=== PATIENT | female | born 1995 | race Caucasian/White ===

== ENCOUNTER 2023-02-02 14:54 | Outpatient (CLI) | payer OTHER, SELFPAY ==
[2023-02-02 16:13] LABS: Basophils Absolute Auto 0.04 K/mm3 (0.00-0.10); Basophils Percent Auto 0.2 % (0.0-1.0); Eosinophils Percent Auto 1.2 % (1.0-6.0); Hematocrit 32.9 % (35.0-49.0); Hemoglobin 11.1 g/dL (12.0-15.0); Immature Granulocyte Absolute 0.23 K/mm3 (0.00-0.00); Immature Granulocyte Percent A 1.4 % (0.0-0.0); Lymphocytes Absolute Auto 3.29 K/mm3 (1.10-4.50); Lymphocytes Percent Auto 20.1 % (18.0-42.0); Mean Corpuscular HGB Conc 33.7 g/dL (32.0-36.0); Mean Corpuscular Hemoglobin 31.7 pg (27.0-31.0); Mean Platelet Volume 10.9 fl (9.2-11.8); Monocytes Absolute Auto 1.06 K/mm3 (0.10-0.90); Monocytes Percent Auto 6.5 % (2.0-11.0); Neutrophils Absolute Auto 11.5 K/mm3 (1.7-7.2); Neutrophils Percent Auto 70.6 % (50.0-70.0); Platelet Count Result 250 K/mm3 (150-420); Red Cell Distribution Width 12.3 % (11.6-14.4); White Blood Count 16.4 K/mm3 (4.8-10.8)
[2023-02-02 16:45] LABS: Thyroid Stimulating Hormone 2.42 uIU/mL (0.36-3.74)
[2023-02-02 17:40] LABS: Glucose 1 Hour PP 50gm Dose 124 mg/dL (70-130)
[2023-02-04 13:46] LABS: RPR Screen Non-Reactive (Non-Reactive)
[2023-02-05 14:35] LABS: Vitamin D 25 Hydroxy 33 ng/mL (30-100)
== END 2023-02-02 14:55 | disposition home or self-care (01) ==
PROVIDERS: PCP Registered Nurse; Visit Provider Registered Nurse
DX: Z34.93 Encounter for supervision of normal pregnancy, unspecified, third trimester (principal)
CPT/HCPCS: 36415; 82306; 82947; 84443; 85025; 86592; 87086

== ENCOUNTER 2023-03-02 15:31 | Outpatient (CLI) | payer OTHER, SELFPAY ==
[2023-03-02 15:44] LABS: Hematocrit 33.7 % (35.0-49.0); Hemoglobin 11.1 g/dL (12.0-15.0); Mean Corpuscular HGB Conc 32.9 g/dL (32.0-36.0); Mean Corpuscular Hemoglobin 31.4 pg (27.0-31.0); Mean Corpuscular Volume 95.5 fL (78.0-102.0); Mean Platelet Volume 11.2 fl (9.2-11.8); Platelet Count Result 255 K/mm3 (150-420); Red Blood Count 3.53 M/mm3 (4.20-5.40); Red Cell Distribution Width 12.5 % (11.6-14.4); White Blood Count 15.3 K/mm3 (4.8-10.8)
[2023-03-02 16:18] LABS: HIV 1 P24 AG Negative (Negative); HIV 1/2 AB Negative (Negative)
[2023-03-04 15:14] LABS: RPR Screen Non-Reactive (Non-Reactive)
== END 2023-03-02 15:32 | disposition home or self-care (01) ==
PROVIDERS: PCP Registered Nurse; Visit Provider Obstetrics & Gynecology
DX: Z34.03 Encounter for supervision of normal first pregnancy, third trimester (principal)
CPT/HCPCS: 36415; 85027; 86592; 87806

== ENCOUNTER 2023-04-26 05:50 | Inpatient (IN) | payer OTHER, SELFPAY ==
[2023-04-26] VITALS (219 sets, daily range): BP systolic 93–145; BP diastolic 43–97; PULSE 61–199; RESP 18; TEMP 36.1–36.6; O2SAT 81–100; BMI 43.4
--- NOTE | 2023-04-26 06:19 | P.PNAN_ITS ---
Anes - Initial Pre Proc Eval Procedure: Labor epidual Date/Time: 04/26/23 06:19 Surgeon: Aristides Clemente MD Pre Op Diagnosis: Labor pain Pre Op Diagnosis: IOL Patient Data Age: 27 Gender: F Height: Weight: Last Vital Signs Pulse 87 04/26/23 06:16 BP 129/78 04/26/23 06:16 Allergies Allergy/AdvReac Type Severity Reaction Status Date / Time No Known Allergies Allergy Verified 04/20/23 15:44 Home Medications Medication Instructions Recorded Confirmed Type vitamins no.170-iron 1 tablet PO DAILY 02/02/23 04/04/23 History fumarate 27 mg-folic acid 1 mg tablet ferrous sulfate 325 mg (65 mg 325 mg PO DAILY 03/30/23 03/30/23 History iron) tablet Patient hx anesthesia problems: none Family hx anesthesia problems: none Results Review: All pre-operative results and documents have been reviewed as part of the pre- operative evaluation. [facility] Past Medical History Medical History Encounter for related examination in third trimester Fibroid Family History Family History Grandparent Diabetes mellitus Hypertension Grandparent Diabetes mellitus Mother Depression Hypertension Migraine Social History Social History Smoking status: Never smoker Alcohol intake: former Substance use: never Lack of Transportation: No Lack of Food: Never True Current Housing: I Have Housing Concerned About Future Housing: No Difficulty Paying Gas/Electric Bills: No Difficulty Paying for Meds: No Currently Unemployed: No Difficulty w/ Childcare or Family Care: No Living arrangements: with family Additional living arrangements comments: Spouse Occupation/Education: occupation 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 Informed Consent: The patient's anesthetic plan and its attendant risks and benefits were discussed with the patient/family/POA. Questions were solicited and answers provided to the satisfaction of the patient/family/POA.
--- NOTE | 2023-04-26 06:36 | LDADM ---
This patient, Lo Rodas, was admitted to Labor/Delivery/Recovery 103 on 04/26/23 at 05:50. Plans for labor, pain management and were discussed with patient. Patient/family oriented to hospital policies and general routines including ID bracelet, bed and alarms, visiting hours, pain management, procedures, bathroom and other care routines, personal items, smoking policy, room service/diet and guest tray routines, security routines, and visiting hours. Patient/Family are encouraged to report perceived risks to care and to ask questions if they do not understand what they are told or what they should do. See OBIX for further documentation.
[2023-04-26 06:42] LABS: Basophils Percent Auto 0.3 % (0.2-1.2); Eosinophils Absolute Auto 0.2 K/mm3 (0-0.3); Eosinophils Percent Auto 1.3 % (0-4.4); Hematocrit 34.6 % (37.0-47.0); Hemoglobin 11.8 g/dL (12.0-15.0); Immature Granulocyte Absolute 0.22 K/mm3 (0.00-0.031); Immature Granulocyte Percent A 1.4 % (0-0.5); Lymphocytes Absolute Auto 3.18 K/mm3 (0.9-3.2); Lymphocytes Percent Auto 19.9 % (18.3-44.2); Mean Corpuscular HGB Conc 34.1 g/dl (32-36); Mean Corpuscular Hemoglobin 31.6 pg (26-34); Mean Corpuscular Volume 92.5 fl (80-100); Mean Platelet Volume 11.4 fl (7.4-10.4); Monocytes Absolute Auto 1.1 K/mm3 (0.1-0.6); Monocytes Percent Auto 7.1 % (2.6-8.5); Neutrophils Absolute Auto 11.2 K/mm3 (1.3-6.7); Platelet Count Result 251 k/mm3 (150-375); Red Blood Count 3.74 M/mm3 (4.2-5.4); Red Cell Distribution Width 12.8 % (11.5-14.5)
[2023-04-26] MEDS: LACTATED RINGERS 1,000 ML 125 ML IV CONT ×2 (07:17→17:25)
[2023-04-26] MEDS: OXYTOCIN 30 UNITS/NS 500 ML 30 UNITS/500 ML BAG 6 UNITS IV CONT (07:17)
--- NOTE | 2023-04-26 11:56 | PM.IMHP ---
H&P: HPI History of Present Illness Date/Time: 04/26/23 11:56 Chief Complaint: Induction of labor. She is term, uncomplicated , discussed options of induction vs spontaneous labor and had opted for MIL. Labs reviewed. Review of Systems Review of Systems: All systems reviewed & are unremarkable except as noted in HPI and below Constitutional: Constitutional: Reports no additional constitutional complaints and Denies headache(s) Eyes: Eyes: Denies spots in vision ENT: Reports system reviewed and no additional complaints, except as documented and Denies headache(s) Cardiovascular: Cardiovascular: Denies chest pain and Denies dyspnea Respiratory: Respiratory: Denies dyspnea Gastrointestinal: Gastrointestinal: Reports no additional gastrointestinal complaints Genitourinary: Genitourinary: Reports amenorrhea Musculoskeletal: Musculoskeletal: Reports no additional musculoskeletal complaints Integumentary/Breasts: Skin/Breast: Denies breast mass and Denies rash Neurologic: Denies headache(s) Psychiatric: Psychiatric: Reports no additional psychiatric complaints [facility] Past Medical History Medical History (Updated 05/13/23 @ 10:08 by Aristides Clemente MD) Encounter for related examination in third trimester Fibroid Vaginal delivery Family History Family History Grandparent Diabetes mellitus Hypertension Grandparent Diabetes mellitus Mother Depression Hypertension Migraine Social History Social History Smoking status: Never smoker Alcohol intake: former Substance use: never Do You Feel Safe in your Home?: Yes Lack of Transportation: YES Lack of Food: Never True Current Housing: I Have Housing Concerned About Future Housing: No Difficulty Paying Gas/Electric Bills: No Difficulty Paying for Meds: No Currently Unemployed: No Education: Master's Degree or Higher Difficulty w/ Childcare or Family Care: No Living arrangements: with family Additional living arrangements comments: Spouse Occupation/Education: occupation 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 Gender identity (if verbalized by the patient): Female Sexual Orientation (if Verbalized by the Patient): Straight or Heterosexual Spiritual care concerns: No Meds Home Medications and Allergies Home Medications Medication Instructions Recorded Confirmed Type vitamins no.170-iron 1 tablet PO DAILY 02/02/23 04/04/23 History fumarate 27 mg-folic acid 1 mg tablet ferrous sulfate 325 mg (65 mg 325 mg PO DAILY 03/30/23 03/30/23 History iron) tablet Allergies Allergy/AdvReac Type Severity Reaction Status Date / Time No Known Allergies Allergy Verified 04/20/23 15:44 Vital Signs Vital Signs - 24 hr 04/26/23 06:16 04/26/23 07:45 04/26/23 07:47 Temperature 97.8 F Pulse Rate 87 63 61 Respiratory Rate 18 Blood Pressure 129/78 137/71 129/67 Oxygen Delivery 04/26/23 08:01 04/26/23 08:16 04/26/23 08:31 Temperature Pulse Rate 76 83 83 Respiratory Rate Blood Pressure 124/58 L 120/64 132/76 Oxygen Delivery 04/26/23 08:46 04/26/23 09:01 04/26/23 09:16 Temperature Pulse Rate 63 81 72 Respiratory Rate Blood Pressure 140/81 132/82 106/80 Oxygen Delivery 04/26/23 09:31 04/26/23 09:00 04/26/23 09:46 Temperature 97 F L Pulse Rate 94 80 Respiratory Rate Blood Pressure 121/77 125/72 Oxygen Delivery 04/26/23 10:01 04/26/23 10:16 04/26/23 10:31 Temperature Pulse Rate 74 84 66 Respiratory Rate Blood Pressure 126/69 133/64 127/95 H Oxygen Delivery 04/26/23 10:46 04/26/23 11:03 04/26/23 11:54 Temperature 97 F L Pulse Rate 75 64 Respiratory Rate Blood Pressure 133/78 135/65 Oxygen Delivery 04/26/23 06:35 Temperature Pulse Rate Respiratory R
[2023-04-26 14:37] LABS: Rapid Plasma Reagin Non-Reactive (NonReactive)
[2023-04-26] MEDS: ONDANSETRON INJ 4 MG/2 ML VIAL IV PUSH (17:25)
[2023-04-27] VITALS (26 sets, daily range): BP systolic 110–152; BP diastolic 56–80; PULSE 81–139; RESP 16–20; TEMP 36.4–37.2; O2SAT 84–99
[2023-04-27] MEDS: OXYTOCIN 30 UNITS/NS 500 ML 30 UNITS/500 ML BAG 999 UNITS IV CONT (01:00)
[2023-04-27] MEDS: OXYTOCIN 30 UNITS/NS 500 ML 30 UNITS/500 ML BAG 125 UNITS IV CONT (01:30)
--- NOTE | 2023-04-27 01:38 | P.PCNOB_ITS ---
OB - Vaginal Delivery Note Procedure Delivery date: 04/27/23 Induction method: Per Pitocin Protocol Delivery augmentation: Rupture of Membranes Delivery monitor: External FHT and Internal Uterine Route of delivery: Episiotomy description: None Laceration Description: Perineal - 2nd Degree Delivery repair: vicryl (3.0 vicryl) Specimen: No Quantitative Blood Loss (ml): 350 Anesthesia type: Epidural Disposition: Floor Complications: No immediate complications Narrative: She was admitted for [facility]. She had pitocin started. She had AROM 0844. She progressed to active labor. She dilated to complete, -1 station/OP. After changing positions to allow baby descend. She then started pushing and delivered a male . Nose and mouth suctioned at perineum. Infant was vigorously crying and placed on maternal abdomen. Delayed cord clamping for 45 seconds until cord apulsatile. Placenta delivered spontaneously. She sustained a second degree perineal laceration repaired with 3.0 vicryl. She tolerated procedure well. [place] Baby Date of : 04/27/23 Weeks of gestation at delivery: 40 gender: Male presentation: vertex position: Right Occiput Posterior Placenta delivery description: Spontaneous Cord Vessel Description: 3 Vessels, Clamped/Cut and Delayed Cord Clamping score one minute: 9 score five minutes: 9 AMG Delivery Billing Delivery Delivery: Delivery Charge
--- NOTE | 2023-04-27 03:37 | PC.NURSE ---
Patient transferred to post room #291 per wheelchair from labor and delivery. Support person present. Oriented to unit, room, information board, rooming in, admission packet and security measures. Patient verbalizes understanding.
[2023-04-27] MEDS: IBUPROFEN 600 MG TABLET PO (04:05)
--- NOTE | 2023-04-27 15:52 | PC.NURSE ---
[id number] Introductions were made, then consulted with patient to assess needs related to . Discussed with mother her?plans to feed?her infant, the?experience so far and encouraged understanding of the benefits of skin to skin (demonstrating unwrapping infant and placing upright on her chest), stimulating with massage touch, changing positions to encourage wakefulness, how to watch for early feeding cues, responsive feeding, feeding on demand (aiming for 8-12 times in 24 hours, about every 2-3 hours), milk production, building/maintaining a milk supply, duration of feeding, signs of adequate intake/output and how to record on the feeding sheet. Changed a wet and meconium diaper and placed infant [id number] demonstrating waking up baby techniques. Resources provided for inpatient and outpatient services with the feeding sheet, mom/baby guide and name written on the communication board. Mother voiced understanding of information and will call if there is a request for assistance. Reported to the Primary RN. [phone] Consulted with patient after a request of assistance. Mother works well with her with encouragement and education. Reviewed positioning and ear, shoulder, hip alignment, supporting the breast to facilitate a deep latch, asymmetrical latch (off-center), leading with the chin with a big, open, wide gape and body close to mother. Attempted to latch to the right breast using the football positioning and didn't not want to latch. Decided to attempt to the right breast using the cross cradle positioning. is able to effectively latch, with big, open, wide gape, good rocking jaw motion, then doesn't maintain. demonstrates some gaggy behaviors. We re-latched several times practicing the movements and latch for about 10 minutes, then made a decision to latch to the left breast. latched optimally to the left breast in cross cradle position. Education given to the mother of how to visualize the suckling (with good rocking jaw motion), swallows (dropping of the lower jaw) and how to listen for drinking at the breast (the ka sound). Infant was able to maintain latch without pain to mother protecting the nipple with optimal positioning, latching and demonstrating swallowing. Reviewed comfort measures of healing with a warm, wet washcloth to rinse breast, then leave open to air-dry, good handwashing when or touching the breast/nipples to prevent infection. Mother voiced understanding of skin to skin, stimulating with massage touch, responsive feedings, hand expressed colostrum, talking to infant to encourage if it has been 2 -2.5 hours since the start of the last , to call if does not latch, or if there is discomfort with . Resources used for education were facilitated with the visual educational handouts, tool, mom and baby guide. Inpatient/outpatient resources provided with feeding sheet, name written on the communication board, and the mom/baby guide. Parents voiced understanding of information, demonstrated learning and will call if there is a request for assistance. Reported to the Primary RN. [id number] Mother requested assistance with . Consulted with mother to assess needs. Mother has company in the room, then leave and more comes in to visit. Mother is willing to work with LC and with company. We practice [id number]-uica, waking techniques and infant is sleepy and reluctant to show feeding cues to breastfeed. Mother states infant was circumcised around noon and the primary RN stated infant may be sleepy after the procedure and oral medication. We discussed and practiced hand expression and finger fed a few drops of colostrum to . Maternal grandmother will hold infant while the parents eat lunch. [phone] Mother called for assistance to wake infant up to breastfeed. Circumcision care was disc
[2023-04-27] MEDS: WITCH HAZEL 40 PADS 1 PAD TOPICAL (22:53)
[2023-04-28 06:20] LABS: Hemoglobin 9.5 g/dL (12.0-15.0)
--- NOTE | 2023-04-28 07:43 | WPDANLDPN2 ---
Anes-Prog Note L&D Date/Time: 04/28/23 07:43 Comfortable throughout: labor and delivery Neuraxial method: epidural Epidural/Spinal procedure site: clean & non-tender Neuro status: Neuro function grossly intact. Cardiovascular status: normal Respiratory status: normal Airway patency: baseline Mental status: baseline Post-Op hydration status: normal Vital Signs: Last Vital Signs Temp 98.0 F 04/27/23 20:25 Pulse 105 H 04/27/23 20:25 Resp 20 04/27/23 20:25 BP 136/78 04/27/23 20:25 Pulse Ox 99 04/27/23 12:15 O2 Del Method Room Air 04/27/23 12:30 Pain score (VAS): 0/10 Post-procedural complaints: none Patient feedback: Patient satisfied with anesthetic care.
[2023-04-28 08:00] VITALS: BP 120/68; PULSE 80; RESP 16; TEMP 36.3; O2SAT 100
[2023-04-28] MEDS: IBUPROFEN 600 MG TABLET PO (09:11)
[2023-04-28] MEDS: MULTIVIT/MIN/PREN/FOL AC/IRON TABLET 1 TAB PO (09:11)
[2023-04-28] MEDS: POLYSACCHARIDE IRON COMPLEX 150 MG CAPSULE PO (09:11)
[2023-04-28] MEDS: DOCUSATE SODIUM 100 MG CAPSULE PO (09:11)
--- NOTE | 2023-04-28 11:42 | PC.NURSE ---
Patient viewed the discharge video Mother & Baby Care, The First Two Weeks . Patient was given the opportunity and encouraged to ask questions. Patient verbalized understanding of information shared and has been given the mother/baby guide for home reference.
--- NOTE | 2023-04-28 13:17 | PC.NURSE ---
[id number] Mother verbalizes she is able to independently latch with appropriate positioning, alignment and occasionally uses the nipple shield or supplements with a bottle. She denies any nipple discomfort and is responsively . is currently meeting outcomes for weight, output, jaundice, blood sugar and feeding frequencies of 8-12 times in 24 hours. Reminded mother to use good handwashing technique to prevent infection. Mother is feeding appropriately for growth of infant and understands stimulating infant to eat if needed. Mother states she is confident to continue effectively her at home, when to call for assistance, denies any additional assistance or education at this time. Reinforced understanding of milk production, transition of milk, signs of adequate intake, transition of stool, prevention/relief of engorgement, plugged ducts, mastitis, responsive watching for feeding cues, the different methods of stimulating to breastfeed on demand aiming for 1-3 hours after the start of the last feeding, community resources, and when to call a provider using the resource of the mom and baby guide. Mother voiced understanding of the education shared.
[2023-04-29 13:58] VITALS: BP 134/66; PULSE 72; RESP 18; TEMP 37; O2SAT 100
--- NOTE | 2023-05-16 19:59 | PM.OBDSVD ---
DS: Admitting Diagnosis Discharge Date 04/28/23 Admitting Diagnosis Medical induction of labor DS: Discharge Diagnosis Discharge Diagnosis (1) Vaginal delivery: Code(s): O80 - Encounter for full-term uncomplicated delivery Status: Acute OB - DS: Summary Hospital Course Hospital Course: She was admitted for medical induction of labor. She had an uncomplicated vaginal deivery. She did well . Baby did well. She was discharged to home on 04/28/23. OB Procedures : Ultrasound OB Procedures Intrapartum: Spontaneous Vag Delivery OB Procedures: : None Peripartum Data Infant Delivery Method: Natural Vaginal Laceration Description: Perineal - 2nd Degree Episiotomy description: None complications: none Status at Discharge Functional status at discharge: independent ambulation Time Spent with Patient Time attestation: Total time spent providing and/or coordinating discharge services: Exam Const: General: cooperative Orientation/consciousness: oriented to person, oriented to place and oriented to time HENMT: Face/Nose/Sinus: Normal external nose present Eyes: General: appearance normal, both eyes and all related structures Resp: Effort & Inspection: normal respiratory effort GI: Inspection: normal to inspection Skin: General skin exam: normal color Neuro: General: oriented to person, oriented to place and oriented to time Extrem: General: normal to inspection and no calf tenderness Psych: Appearance: grossly normal Mental Status: mental status grossly normal Discharge Plan Discharge Attending physician on discharge: Aristides Clemente Consulting providers: Ted Velazquez; Demar Vargas Discharging Clinician: Aristides Clemente Anticipated Discharge Date/Time: 04/28/23 10:58 Patient Disposition: Home, Self-Care Activity: may shower and pelvic rest Diet: regular Discharge Instructions: Education: Mom and Baby Guide Given to: Mother Follow-Up: Call your delivering provider's office for an appointment to be seen in the next 4-6 weeks. Mom and baby should come to the [facility] for the follow-up appointment. Appointment Date/Time: April 29, 2023 at 1:30 pm What to expect at your follow-up visit: Physical Assessment Call [phone] if you are unable to keep your appointment time. BREAST CARE: * Wear a snug supportive bra. * For engorgement discomfort: Breast Feeding: * Apply warm moist washcloths * Express milk as needed to relieve engorgement * Wear loose clothing Bottle Feeding: * May apply ice packs * For sore nipples: * Identify correct latch-on * Apply warm moist washcloths before and after nursing * Air dry nipples after nursing * May apply Lansinoh cream to nipples EPISIOTOMY/PERINEAL CARE: * Until bleeding stops, use your andriy bottle after urinating * Change your pad frequently throughout the day * You may take sitz baths several times a day (fill your bathtub with warm water and soak for 20 minutes.) Do NOT bathe in the water * No tub baths until seen by your physician - You may shower ACTIVITY: * Rest as much as possible. * Do not exercise or lift anything heavier than your baby (such as laundry or other children.) * Avoid stairs or driving as much as possible. * Do not put anything into the vagina. No douching, tampons, or sexual activity until seen by physician. NOTIFY PHYSICIAN IF YOU HAVE ANY QUESTIONS OR IF ANY OF THE FOLLOWING SYMPTOMS OCCUR: * If your episiotomy/perineum becomes red, swollen, or more painful than what you have experienced in the hospital. * If your vaginal bleeding becomes foul smelling. * If your vaginal bleeding becomes more heavy than a period or if your bleeding changes from pink to bright red. However, you may pass an occasional walnut-sized clot once or twice for the first we
== END 2023-04-28 13:41 | disposition home or self-care (01) | DRG 807 ==
LOC: ANHLDR 05:54 → ANHOB2 04-27 03:40
PROVIDERS: Admitting Provider Obstetrics & Gynecology; Visit Provider Obstetrics & Gynecology
DX: O70.1 Second degree perineal laceration during delivery (principal); Z37.0 Single live birth; Z3A.40 40 weeks gestation of pregnancy
CPT/HCPCS: 36415; 85014; 85018; 85025; 86592; 86850; 86900; 86901; A9270; J2405; J2590; J2795; J7120

== ENCOUNTER 2023-10-17 15:09 | Outpatient (CLI) | payer OTHER, SELFPAY ==
--- NOTE | ~2023-10-17 | US_ITS ---
Pelvic ultrasound. Clinical History: Respiratory distress or , establish dates and viability Technique: Realtime transabdominal and transvaginal scanning of the pelvis was performed. Color flow Doppler and Doppler spectral analysis were performed. Findings: The uterus is anteverted, and contains an intrauterine gestational sac. Average sac diamete r of 2.2 cm corresponds to an estimated gestational age is 7 weeks 1 day. [place]-rump length of 5 mm c orresponds to an estimated gestational age of 6 weeks 1 day. No definite cardiac activity seen. The right ovary measures 2.2 x 2.2 x 2.0 cm. No significant right ovarian or adnexal mass is seen. The left ovary is not visualized. No significant left ovarian or adnexal mass is seen. There is no evidence of free fluid in the cul de sac. Impression: Intrauterine gestation, with somewhat discrepant ages on comparing average sac diameter with crown-ru mp length. Based on crown-rump length, there is an estimated gestational age of 6 weeks 1 day, but no cardiac activity evident. Diagnostic considerations include early normal versus didi se/missed . Correlate clinically. Continued follow-up with serial beta hCG advised. Consider short-term follow-up ultrasound in 5-7 days to assess for development of cardiac activity. Reviewed, dictated and finalized at location . Impression: Intrauterine gestation, with somewhat discrepant ages on comparing average sac diameter with crown-rump length. Based on crown-rump length, there is an estima primo gestational age of 6 weeks 1 day, but no cardiac activity evident. Diagnost ic considerations include early normal versus demise/missed abo rtion. Correlate clinically. Continued follow-up with serial beta hCG advised. Consider short-term follow-up ultrasound in 5-7 days to assess for development of cardiac activity.
== END 2023-10-17 15:10 ==
PROVIDERS: PCP Nurse Practitioner Family; Visit Provider Nurse Practitioner Family
DX: N91.2 Amenorrhea, unspecified (principal)
CPT/HCPCS: 76801; 76817

== ENCOUNTER 2023-10-18 15:47 | Outpatient (CLI) | payer OTHER, SELFPAY | END 2023-10-18 15:48 | disposition home or self-care (01) | LOC: CHSLAB 15:51 | PROVIDERS: PCP Nurse Practitioner Family; Visit Provider Obstetrics & Gynecology | DX: O36.80X0 Pregnancy with inconclusive fetal viability, not applicable or unspecified (principal) | CPT/HCPCS: 36415; 84702 ==

== ENCOUNTER 2023-10-20 12:50 | Outpatient (CLI) | payer OTHER, SELFPAY | END 2023-10-20 12:51 | disposition home or self-care (01) | LOC: CHSLAB 12:52 | PROVIDERS: PCP Nurse Practitioner Family; Visit Provider Obstetrics & Gynecology | DX: O36.80X0 Pregnancy with inconclusive fetal viability, not applicable or unspecified (principal) | CPT/HCPCS: 36415; 84702 ==

== ENCOUNTER 2023-10-24 11:12 | Outpatient (CLI) | payer OTHER, SELFPAY ==
--- NOTE | ~2023-10-24 | US_ITS ---
EXAMINATION: US OB <=14 wk fetus w TV DATE: 10/24/2023 11:44 INDICATION: with inconclusive viability. TECHNIQUE: Real-time transabdominal and transvaginal pelvic ultrasound was performed. COMPARISON: Ultrasound 10/17/2023 FINDINGS: TRANSABDOMINAL ULTRASOUND: The uterus measures 11.1 x 6.4 x 5.8 cm. TRANSVAGINAL ULTRASOUND: There is an intrauterine gestational sac. A yolk sac is not identified. The crown rump length measures 5 mm, which correlates with an estimated gestational age of 6 weeks and 1 day(s) (+/-) 4 day(s). heart motion is not identified by M-mode Doppler. There is a smal l subchorionic hematoma. The right ovary measures 2.3 x 2.2 x 2.8 cm. The left ovary is not visualize d. There is no free fluid in the pelvis. IMPRESSION: 1. pole measuring 5 mm without change in size from 10/17/2023 suspicious for demise. 2. Small subchorionic hematoma. Reviewed, dictated and finalized at location E.
== END 2023-10-24 11:13 ==
PROVIDERS: PCP Nurse Practitioner Family; Visit Provider Obstetrics & Gynecology
DX: O36.80X0 Pregnancy with inconclusive fetal viability, not applicable or unspecified (principal)
CPT/HCPCS: 76801; 76817

== ENCOUNTER 2023-10-26 11:56 | Outpatient (CLI) | payer OTHER, SELFPAY | END 2023-10-26 11:57 | disposition home or self-care (01) | LOC: CHSLAB 11:58 | PROVIDERS: PCP Nurse Practitioner Family; Visit Provider Nurse Practitioner Family | DX: O20.9 Hemorrhage in early pregnancy, unspecified (principal) | CPT/HCPCS: 36415; 84702 ==

== ENCOUNTER 2023-10-27 12:43 | Emergency (ER) | payer OTHER, SELFPAY ==
[2023-10-27] VITALS (10 sets, daily range): BP systolic 109–114; BP diastolic 61–67; PULSE 81–90; RESP 12–19; TEMP 36.7; O2SAT 97–100
--- NOTE | ~2023-10-27 | US_ITS ---
EXAMINATION: US OB <= 14 weeks fetus DATE: 10/27/2023 15:25 INDICATION: Miscarriage. Assess for retained products of conception. TECHNIQUE: Real-time pelvic ultrasound utilizing transabdominal probe was performed. The jose g radiologist was not present for the study. COMPARISON: None. FINDINGS: The uterus measures 13.2 x 4.9 x 7.3 cm. The endometrial complex measures up to 5 mm in thickness wi th no intrauterine gestational sac. Endocervical canal potentially endometrial canal within the lower uterine segment is dilated to 3.5 cm containing hypoechoic material without internal vascular flow o n color Doppler which could represent either clot or passing products of conception. The right ovary measures 2.7 x 2.3 x 2.2 cm. The left ovary measures 2.4 x 1.5 x 1.9 cm. Vascular kayla w identified at both ovaries on color Doppler. There is no free fluid in the pelvis. IMPRESSION: 1. 5 mm thick endometrial complex with no intrauterine gestational sac or retained products of concep tion at the uterine body or fundus. 2. Avascular hypoechoic material within the dilated endocervical and potentially also the endometrial canal of the lower most uterine segment which could represent clot or passing products of conception . Reviewed, dictated and finalized at location A. IMPRESSION: 1. 5 mm thick endometrial complex with no intrauterine gestational sac or retai daniel products of conception at the uterine body or fundus. 2. Avascular hypoechoic material within the dilated endocervical and potentiall y also the endometrial canal of the lower most uterine segment which could repr esent clot or passing products of conception.
--- NOTE | 2023-10-27 13:45 | ED.FEMALEGU ---
HPI - Female Genitourinary General Chief complaint: Vaginal Bleeding Stated complaint: pt states she is having a miscarriage 12 weeks pre Time Seen by Provider: 10/27/23 13:27 Source: patient and family Limitations: no limitations History of Present Illness HPI Narrative: 28 yo presents actively miscarrying. She had a normal spontaneous vaginal delivery with her first child (full term) on April 27, 2023. Menses returned and LMP 08/03/23 so approximately 11 to 12 weeks gestational age when she started having vaginal bleeding 3 days ago. She had some scant discharge on 10/20 and cramping. This continued and on 10/23 she saw her OBGyn (Dr Clemente's) nurse practitioner Marie. [facility] downtrending and patient was informed about miscarriage. Tuesday and Tuesday she continued to have some cramping and bleeding but it intensified today, saturating 2 pads/hour. States she had anemia of with her first . Pain comes and goes, has been using heating pads, tylenol and ibuprofen. Believes she passed products of conception at approximately 7:45. Has passed multiple clots and stringy tissue. Saturated an adult diaper in triage and then filled another in room by report. Related Data Home Medications Medication Instructions Recorded Confirmed vitamins no.170-iron 1 tablet PO DAILY 02/02/23 09/29/23 fumarate 27 mg-folic acid 1 mg tablet Allergies Allergy/AdvReac Type Severity Reaction Status Date / Time No Known Allergies Allergy Verified 10/27/23 12:44 REPLACED BY [facility] Past Medical History Medical History Fibroid Vaginal delivery April 27, 2023 Family History Family History Grandparent Diabetes mellitus Hypertension Grandparent Diabetes mellitus Mother Depression Hypertension Migraine Social History Social History Smoking status: Never smoker Alcohol intake: former Substance use: never Do You Feel Safe in your Home?: Yes Lack of Transportation: YES Lack of Food: Never True Current Housing: I Have Housing Concerned About Future Housing: No Difficulty Paying Gas/Electric Bills: No Difficulty Paying for Meds: No Currently Unemployed: No Education: Master's Degree or Higher Difficulty w/ Childcare or Family Care: No Living arrangements: with family Additional living arrangements comments: Spouse Occupation/Education: occupation 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 HEAD: Normocephalic, atraumatic. EYES: Non injected, non icteric. No marked conjunctival pallor ENT: Nares clear, no rhinorrhea or epistaxis. NECK: Supple. CHEST: Speaking in full sentences. No respiratory distress. HEART: Regular rate and rhythm. . ABDOMEN: Soft, nondistended. : Some blood at external genitalia. No appreciable lacerations. Some thin blood pooled at posterior fornix, cleared away with multiple Q tip applicators and 1 gauze pad. Thicker clot burden at anterior fornix. Broken up and multiple small clots removed. EXTREMITIES: Normal range of motion. No edema. No pettechiae. SKIN: Warm, dry, no rash. NEURO: No focal deficits. Alert and oriented x3. PSYCH: Normal mood and affect. Course Vital Signs Vital signs: Vital Signs Pulse Rate 81 10/27/23 13:30 Respiratory Rate 15 10/27/23 13:30 Pulse Oximetry 100 10/27/23 13:30 Temperature 98.0 F 10/27/23 13:31 Pulse Rate 90 10/27/23 15:07 Respiratory Rate 14 10/27/23 15:07 Blood Pressure 111/66 10/27/23 14:32 Pulse Oximetry 100 10/27/23 15:07 Oxygen Delivery Room A
[2023-10-27 13:57] LABS: Basophils Absolute Auto 0.1 K/mm3 (0.0-0.1); Basophils Percent Auto 0.4 % (0.2-1.2); Eosinophils Absolute Auto 0.2 K/mm3 (0-0.3); Eosinophils Percent Auto 1.2 % (0-4.4); Hematocrit 35.6 % (37.0-47.0); Hemoglobin 11.9 g/dL (12.0-15.0); Immature Granulocyte Absolute 0.05 K/mm3 (0.00-0.031); Immature Granulocyte Percent A 0.4 % (0-0.5); Lymphocytes Absolute Auto 3.01 K/mm3 (0.9-3.2); Mean Corpuscular HGB Conc 33.4 g/dl (32-36); Mean Corpuscular Hemoglobin 30.9 pg (26-34); Mean Corpuscular Volume 92.5 fl (80-100); Monocytes Absolute Auto 0.9 K/mm3 (0.1-0.6); Monocytes Percent Auto 7.6 % (2.6-8.5); Neutrophils Absolute Auto 7.9 K/mm3 (1.3-6.7); Neutrophils Percent Auto 65.4 % (45.5-73.1); Platelet Count Result 288 k/mm3 (150-375); Red Blood Count 3.85 M/mm3 (4.2-5.4); Red Cell Distribution Width 12.2 % (11.5-14.5); White Blood Count 12.1 K/mm3 (4.5-10.0)
[2023-10-27 14:09] LABS: Alanine Aminotransferase 11 U/L (6-35); Alkaline Phosphatase 70 U/L (38-126); Anion Gap 2 mmol/L (4-12); Aspartate Amino Transferase 18 U/L (14-36); Bilirubin,Total 0.4 mg/dL (0.2-1.3); Blood Urea Nitrogen 12 mg/dL (7-17); Calcium 9.4 mg/dL (8.4-10.2); Carbon Dioxide 28 mmol/L (22-30); Chloride 107 mmol/L (98-107); Estimated CRCL calculation 126 ml/min; Estimated Glomerular Filt Rate > 60; Glucose 104 mg/dL (65-110); Potassium 3.9 mmol/L (3.4-5.0); Sodium 137 mmol/L (137-145)
[2023-10-27 14:11] LABS: Prothrombin Time 14.1 Seconds (11.1-14.7)
[2023-10-27 14:13] LABS: Partial Thromboplastin Time 29.1 Seconds (22.3-36.8)
--- NOTE | 2023-10-27 15:14 | PC.NURSE ---
Has saturated 1 depend with blood since arrival. ERP aware.
== END 2023-10-27 16:35 | disposition home or self-care (01) ==
PROVIDERS: Physician Assistant; Emergency Provider Student in an Organized Health Care Education/Training Program; PCP Nurse Practitioner Family
DX: O03.9 Complete or unspecified spontaneous abortion without complication (principal); D64.9 Anemia, unspecified; D72.829 Elevated white blood cell count, unspecified
CPT/HCPCS: 36415; 76801; 80053; 84702; 85025; 85461; 85610; 85730; 86850; 86900; 86901; 99284

== ENCOUNTER 2023-11-02 09:28 | Outpatient (CLI) | payer OTHER, SELFPAY | END 2023-11-02 09:29 | disposition home or self-care (01) | LOC: CHSLAB 09:29 | PROVIDERS: PCP Nurse Practitioner Family; Visit Provider Nurse Practitioner Family | DX: O03.9 Complete or unspecified spontaneous abortion without complication (principal) | CPT/HCPCS: 36415; 84702 ==

== ENCOUNTER 2023-11-16 14:04 | Outpatient (CLI) | payer OTHER, SELFPAY | END 2023-11-16 14:05 | disposition home or self-care (01) | LOC: CHSLAB 14:06 | PROVIDERS: PCP Nurse Practitioner Family; Visit Provider Nurse Practitioner Family | DX: O03.9 Complete or unspecified spontaneous abortion without complication (principal) | CPT/HCPCS: 36415; 84702 ==

== ENCOUNTER 2023-11-30 17:01 | Outpatient (CLI) | payer OTHER, SELFPAY ==
[2023-11-30 17:51] LABS: Beta HCG Quantitative < 1.00 mIU/mL (0-6)
== END 2023-11-30 17:02 | disposition home or self-care (01) ==
LOC: CHSLAB 17:03
PROVIDERS: PCP Nurse Practitioner Family; Visit Provider Nurse Practitioner Family
DX: O02.1 Missed abortion (principal)
CPT/HCPCS: 36415; 84702

== ENCOUNTER 2024-07-30 16:48 | Outpatient (CLI) | payer OTHER, SELFPAY ==
--- OUTSIDE RECORDS SUMMARY | 2024-07-30 18:47 | XMS_ITS | Referral Summary ---
Author Organization [facility] Address [address] [place] [phone] Care Team Providers Care Tipple Worker Name Role Phone Jacki Doyle NP Primary Care Provider [phone] Encounters Date Type Department Care Team Description 07/17/2024 3:45 PM CDT Office Visit [facility] Medical [facility] Convenient Care at [address] [address] Belinda Rosales PA Nasopharyngitis (Primary Dx); Bilateral impacted cerumen 05/03/2024 5:30 PM ADULT LIVE IN CAREGIVER Office Visit [facility] Convenient Care at [address] [address] Belinda Rosales PA Cellulitis of left lower extremity (Primary Dx) from Last 3 Months Allergies No known active allergies Medications Zoloft 50 mg tablet 4 Active mupirocin (BACTROBAN) 2 % ointment Apply topically 3 (three) times a day 22 g 4 Active Additional Information Patient not taking.Reported on 07/17/2024 Active Problems Problem Noted Date Diagnosed Date Preventative health care 09/15/2023 Assessment & Plan (09/15/2023 8:09 AM CDT): -Recommended: Healthy diet. Avoiding junk food/fast food. -30 minutes of exercise most days of the week. Increase to 45 minutes for weight loss. Immunizations: Up to date increase physical activity, continue present plan, call if any problems Follow-up in 1 year. Immunizations Immunization Administration Dates Next Due Influenza, Unspecified 05/09/2023(Deferr ed: Patient Refused),05/09/2022(Deferred: Patient Refused) Tdap 03/07/2023 Social History Tobacco Use Types Packs/Day Years Used Date Smoking Tobacco: Never Smokeless Tobacco: Never PHQ-2 Answer Date Recorded PHQ-2 Total Score (If total score is 3 or more points, staff should administer the PHQ-9) 0 09/08/2023 Comments Unknown Sex and Gender Information Value Date Recorded Sex Assigned at Not on file Legal Sex Female 4:11 PM CDT Gender Identity Not on file Sexual Orientation Not on file Last Filed Vital Signs Vital Sign Reading Time Taken Comments Blood Pressure 108/72 07/17/2024 3:46 PM CDT Pulse 80 07/17/2024 3:46 PM CDT Temperature 36.3 C (97.4 F) 07/17/2024 3:46 PM CDT Respiratory Rate 20 07/17/2024 3:46 PM CDT Oxygen Saturation 97% 07/17/2024 3:46 PM CDT Inhaled Oxygen Concentration - - Weight 102.1 kg (225 lb) 07/17/2024 3:46 PM CDT Height 162.6 cm (5' 4 ) 07/17/2024 3:46 PM CDT Body Mass Index 38.62 07/17/2024 3:46 PM CDT Plan of Treatment Not on file Procedures Procedure Name Priority Date/Time Associated Diagnosis Comments POCT RAPID STREP Routine 07/17/2024 4:10 PM CDT Nasopharyngitis POC INFLUENZA A/B, COVID-19 ANTIGEN Routine 07/17/2024 4:10 PM CDT Nasopharyngitis [place] REMOVAL IMPACTED CERUMEN INSTRUMENTATION UNILAT Routine 07/17/2024 3:45 PM CDT Bilateral impacted cerumen from Last 3 Months Results * POC Influenza A/B, COVID-19 antigen (07/17/2024 4:10 PM CDT) Influenza A Ag, POC Negative Negative [facility] Influenza B Ag, POC Negative Negative [facility] COVID-19 Ag POC Presumptive Negative Presumptive Negative, Invalid [facility] Nasopharyngeal 07/17/2024 4: 10 PM CDT Belinda SPARROW POINT OF CARE TEST ORDER LIZY Final Result Performing Organization Address City/State/[facility] de Phone Number [facility] EDW [facility] [place] [address], [facility] * POCT rapid strep A (07/17/2024 4:10 PM CDT) Pathologist [facility] Rapid Strep A, POC Negative Negative Swab 07/17/2024 4:10 PM CDT Belinda SPARROW POINT OF CARE TEST ORDER LIZY Final Result * [place] REMOVAL IMPACTED CERUMEN INSTRUMENTATION UNILAT (07/17/2024 3:45 PM CDT) Narrative Belinda Rosales PA - 07/17/2024 3:45 PM CDT Belinda Rosales PA 07/17/2024 4:24 PM Ear Cerumen Removal Performed by: Belinda Rosales PA Authorized by: Belinda Rosales PA Consent Given by: Patient Verbal consent obtained: Yes Location: Bilateral L ear cerumen impacted?: Yes L ear method of removal: Instrumentation, magnification and irrigation L ear instrumentation: Curette L ear magnification: Otoscope R ear cerumen impacted?: Yes R ear method of removal: Instrumentation, magnification and irrigation R ear instrumentation: Curette R ear magnification: Otoscope Inspection: TM intact Hearing quality: Improved Patient tolerance: Patient tolerated the procedure well with no immediate complications Belinda SPARROW IN CLINIC/BEDSIDE ORDERA BLES Final Result from Last 3 Months Insurance AETNA [facility] CHOICE PLUS CHOICE PLUS Care Teams Tipple Worker Relationship Specialty Start Date End Date Jacki Doyle NP PCP - General Family Medicine 09/08/23
--- OUTSIDE RECORDS SUMMARY | 2024-07-30 18:47 | XMS_ITS | Clinical Summary ---
Author Organization [facility] Address [address] [place] [phone] Care Team Providers Care Casting Wheel Operator Helper Name Role Phone Jacki Doyle NP Primary Care Provider [phone] Allergies No known active allergies Medications Zoloft [...] if any problems Follow-up in 1 year. Encounters Date Type Department Care Team Description 07/17/2024 3:45 PM CDT Office Visit [facility] Convenient Care at [address] [address] Belinda Rosales PA Nasopharyngitis (Primary Dx); Bilateral impacted cerumen 05/03/2024 5:30 PM GATEHOUSE ATTENDANT Office Visit [facility] Medical [facility] Convenient Care at [address] [address] Belinda Rosales PA Cellulitis of left lower extremity (Primary Dx) from Last 3 Months Immunizations Immunization Administration Dates Next Due Influenza, Unspecified 05/09/2023(Deferr ed: Patient Refused),05/09/2022(Deferred: Patient Refused) Tdap 03/07/2023 Medical History Medical History Date Comments 04/2023 Family History Medical History Relation Name Comments Diabetes Maternal Grandfather Ovarian cancer Maternal Grandmother Hypertension Mother Diabetes Paternal Grandfather Relation Name Status Comments Father Alive Maternal Grandfather Maternal Grandmother Mother Alive Paternal Grandfather Social History Tobacco Use Types Packs/Day Years [...] on file Sexual Orientation Not on file Obstetrics History Last Filed Vital Signs Vital Sign Reading [...] 07/17/2024 3:46 PM CDT Plan of Treatment Health Maintenance Due Date Last Done Comments Cervical Cancer Screening 1996 Hepatitis C Screening 1996 Varicella Vaccines (1 of 2 - 13+ 2-dose series) 2009 Hepatitis B Screening 2014 Influenza Vaccine (#1) 2024 Depression Screening 09/07/2024 09/08/2023 Regular Well Visit/Exam 18-64 09/07/2024 09/08/2023 DTaP/Tdap/Td Vaccine (2 - Td or Tdap) 03/07/2033 03/07/2023 HPV Vaccines Aged Out No longer eligi ble based on patient's age to complete this topic Pneumococcal vaccine <65 Aged Out No longer eligible based on patient's age to complete this topic Procedures Procedure Name Priority Date/Time Associated Diagnosis Comments POCT RAPID STREP Routine 07/17/2024 4:10 PM CDT Nasopharyngitis POC INFLUENZA A/B, COVID-19 ANTIGEN Routine 07/17/2024 4:10 PM CDT Nasopharyngitis [place] REMOVAL IMPACTED CERUMEN INSTRUMENTATION UNILAT Routine 07/17/2024 3:45 PM CDT Bilateral impacted cerumen from Last 3 Months Results * POC Influenza A/B, COVID-19 antigen (07/17/2024 4:10 PM CDT) Influenza A Ag, POC Negative Negative [facility] Influenza B Ag, POC Negative Negative [facility] COVID-19 Ag POC Presumptive Negative Presumptive Negative, Invalid [facility] Nasopharyngeal 07/17/2024 4: 10 PM CDT Belinda SPARROW POINT OF CARE TEST ORDER LIZY Final Result [facility] ED[facility] [address] [place] [address] * POCT rapid strep A (07/17/2024 4:10 PM CDT) Rapid Strep A, POC Negative Negative Swab 07/17/2024 4:10 PM CDT Belinda SPARROW POINT OF CARE TEST ORDER LIZY Final Result * [place] REMOVAL IMPACTED CERUMEN INSTRUMENTATION UNILAT (07/17/2024 3:45 [...] Result from Last 3 Months Insurance AETNA [facility] CHOICE PLUS [facility] H[facility]/PPO Address: [address] [address] [place] [address] [facility] CHOICE PLUS [facility] H[facility]/PPO Address: [place] [address] Care Teams Casting Wheel Operator Helper Relationship Specialty Start Date End Date Jacki Doyle NP PCP - General Family Medicine 09/08/23
--- OUTSIDE RECORDS SUMMARY | 2024-07-30 18:47 | XMS_ITS | Clinical Summary ---
Author Organization [facility] Address [address] [place] [phone] Phone Care Team Providers Care Bed And Breakfast Innkeeper Name Role Phone Unavailable Primary Care Provider Unavailabl e Encounters Date Type Department Care Team Description 05/31/2024 External Device Data STL ABSTRACTION Provider, Abstract from Last 3 Months Social History Tobacco Use Types Packs/Day Years Used Date Smoking Tobacco: Never Assessed Comments Unknown Sex and Gender Information Value Date Recorded Sex Assigned at Not on file Legal Sex Female 8:11 AM CDT Gender Identity Not on file Sexual Orientation Not on file Plan of Treatment Health Maintenance Due Date Last Done Comments DTAP/TDAP/TD VACCINES (1 - Tdap) 2015 HEPATITIS B VACCINES (1 of 3 - 19+ 3-dose series) 2015 PAP SMEAR 2017 INFLUENZA VACCINE (#1) 2023 HPV VACCINES Aged Out No longer eligi ble based on patient's age to complete this topic Insurance [employer] [id number]
--- OUTSIDE RECORDS SUMMARY | 2024-07-30 18:47 | XMS_ITS | Clinical Summary ---
Author Organization [facility] Address [address] [place] [address] Phone Care Team Providers Care Aerospace Project Engineer Name Role Phone Vicente Gupta MD Primary Care Provider + Social History Tobacco Use Types Packs/Day Years Used Date Smoking Tobacco: Never Assessed Comments Unknown Sex and Gender Information Value Date Recorded Sex Assigned at Not on file Legal Sex Female 12:59 PM CDT Gender Identity Not on file Sexual Orientation Not on file Plan of Treatment Health Maintenance Due Date Last Done Comments Hepatitis C Virus (HCV) Screening 1996 TdaP Immunization 1996 Hepatitis B Immunization (1 of 3 - 19+ 3-dose series) 2015 Pap Smear 2017 Influenza Immunization (#1) 2024 SARS-COV-2 Immunization (2023- season) 2024 Respiratory Syncytial Virus (RSV) Immunization (Adult) (1 - 1-dose 75+ series) 2071 Meningococcal Immunization (ACWY) Aged Out No longer eligible based on patient's age to complete this topic Pneumococcal Immunization Combined Aged Out No longer eligible based on patient's age to complete this topic Rotavirus Immunization Aged Out No lo nger eligible based on patient's age to complete this topic Insurance MEDICAID AETNA [facility] Care Teams Aerospace Project Engineer Relationship Specialty Start Date End Date Vicente Gupta MD [address] [address] PCP - General Family Medicine 12/11/22
[2024-07-31 03:28] LABS: Progesterone 8.3 ng/mL
== END 2024-07-30 16:49 | disposition home or self-care (01) ==
LOC: CHSLAB 16:49
PROVIDERS: PCP Nurse Practitioner Family; Visit Provider Obstetrics & Gynecology
DX: O09.299 Supervision of pregnancy with other poor reproductive or obstetric history, unspecified trimester (principal)
CPT/HCPCS: 36415; 84144; 84702

== ENCOUNTER 2024-08-01 15:46 | Outpatient (CLI) | payer OTHER, SELFPAY ==
--- OUTSIDE RECORDS SUMMARY | 2024-08-01 16:56 | XMS_ITS | Clinical Summary ---
Author Organization [facility] Address [address] [place] [phone] Care Team Providers Care Auger Mill Operator Name Role Phone Jacki Doyle NP Primary Care Provider [phone] Allergies No known active allergies Medications Zoloft [...] Description 07/17/2024 3:45 PM CDT Office Visit [facility] Convenient Care at [address] [phone] Belinda Rosales PA Nasopharyngitis (Primary Dx); Bilateral impacted cerumen 05/03/2024 5:30 PM SINGER BACK TENDER Office Visit [facility] Medical [facility] Convenient Care at [address] [phone] Belinda Rosales PA Cellulitis of [...] ANTIGEN Routine 07/17/2024 4:10 PM CDT Nasopharyngitis [place] REMOVAL IMPACTED CERUMEN INSTRUMENTATION UNILAT Routine 07/17/2024 3:45 PM CDT Bilateral impacted cerumen from Last 3 Months Results * POC Influenza A/B, COVID-19 antigen (07/17/2024 4:10 PM CDT) Influenza A Ag, POC Negative Negative [facility] Influenza B Ag, POC Negative Negative [facility] COVID-19 Ag POC Presumptive Negative Presumptive Negative, Invalid [facility] Nasopharyngeal 07/17/2024 4: 10 PM CDT Belinda SPARROW POINT OF CARE TEST ORDER LIZY Final Result [facility] ED[facility] [address] [place] [address] * POCT rapid strep A (07/17/2024 4:10 PM CDT) Rapid Strep A, POC Negative Negative Swab 07/17/2024 4:10 PM CDT Belinda SPARROW POINT OF CARE TEST ORDER LIZY Final Result * [place] REMOVAL IMPACTED CERUMEN INSTRUMENTATION UNILAT (07/17/2024 3:45 [...] Result from Last 3 Months Insurance AETNA [facility] CHOICE PLUS [facility] CHOICE PLUS Care Teams Auger Mill Operator Relationship Specialty Start Date End Date Jacki Doyle NP PCP - General Family Medicine 09/08/23
--- OUTSIDE RECORDS SUMMARY | 2024-08-01 16:56 | XMS_ITS | Clinical Summary ---
Author Organization [facility] Address [address] [place] [address] Phone Care Team Providers Care Computer Analyst Supervisor Name Role Phone Vicente Gupta MD Primary [...] to complete this topic Insurance MEDICAID AETNA [facility] Care Teams Computer Analyst Supervisor Relationship Specialty Start Date End Date Vicente Gupta MD [address] [address] PCP - General Family Medicine 12/11/22
--- OUTSIDE RECORDS SUMMARY | 2024-08-01 16:56 | XMS_ITS | Referral Summary ---
Author Organization [facility] Address [address] [place] [phone] Care Team Providers Care Hardwood Finisher Name Role Phone Jacki Doyle NP Primary Care Provider [phone] Encounters Date Type Department Care Team Description 07/17/2024 3:45 PM CDT Office Visit [facility] Medical [facility] Convenient Care at [address] [phone] Belinda Rosales PA Nasopharyngitis (Primary Dx); Bilateral impacted cerumen 05/03/2024 5:30 PM CATHODE BUILDER Office Visit [facility] Convenient Care at [address] [address] Belinda Rosales PA Cellulitis of [...] ANTIGEN Routine 07/17/2024 4:10 PM CDT Nasopharyngitis [place] REMOVAL IMPACTED CERUMEN INSTRUMENTATION UNILAT Routine 07/17/2024 3:45 PM CDT Bilateral impacted cerumen from Last 3 Months Results * POC Influenza A/B, COVID-19 antigen (07/17/2024 4:10 PM CDT) Influenza A Ag, POC Negative Negative [facility] Influenza B Ag, POC Negative Negative [facility] COVID-19 Ag POC Presumptive Negative Presumptive Negative, Invalid [facility] Nasopharyngeal 07/17/2024 4: 10 PM CDT Belinda SPARROW POINT OF CARE TEST ORDER LIZY Final Result Performing Organization Address City/State/[facility] de Phone Number [facility] EDW [facility] [place] [address], [facility] * POCT rapid strep A (07/17/2024 4:10 PM CDT) Pathologist [facility] Rapid Strep A, POC Negative Negative Swab 07/17/2024 4:10 PM CDT Belinda SPARROW POINT OF CARE TEST ORDER LIZY Final Result * [place] REMOVAL IMPACTED CERUMEN INSTRUMENTATION UNILAT (07/17/2024 3:45 [...] from Last 3 Months Insurance AETNA [facility] CHOICE PLUS [facility]/PPO Address: [facility] [address] [place] [address] CHOICE PLUS [facility] HMO/PPO Address: [facility] [address] [place] [address] Care Teams Hardwood Finisher Relationship Specialty Start Date End Date Jacki Doyle NP PCP - General Family Medicine 09/08/23
--- OUTSIDE RECORDS SUMMARY | 2024-08-01 16:56 | XMS_ITS | Clinical Summary ---
Author Organization [facility] Address [address] [place] [phone] Phone Care Team Providers Care Gas Distribution Supervisor Name Role Phone Unavailable Primary Care Provider [...] patient's age to complete this topic Insurance [employer] [id number]
== END 2024-08-01 15:47 | disposition home or self-care (01) ==
LOC: CHSLAB 15:47
PROVIDERS: PCP Nurse Practitioner Family; Visit Provider Obstetrics & Gynecology
DX: O09.299 Supervision of pregnancy with other poor reproductive or obstetric history, unspecified trimester (principal)
CPT/HCPCS: 36415; 84702

== ENCOUNTER 2024-08-03 15:30 | Outpatient (CLI) | payer OTHER, SELFPAY ==
--- OUTSIDE RECORDS SUMMARY | 2024-08-03 15:34 | XMS_ITS | Clinical Summary ---
Author Organization [facility] Address [address] [place] [address] Phone Care Team Providers Care Banking Officer Name Role Phone Unavailable Primary Care Provider [...] of 3 - 19+ 3-dose series) 2015 CERVICAL CANCER SCREENING 2017 HPV/Cotest (21-29) 2017 PAP SMEAR 2017 INFLUENZA VACCINE (#1) 2023 HPV VACCINES Aged Out No longer eligi ble based on patient's age to complete this topic Insurance [facility] [id number]
--- OUTSIDE RECORDS SUMMARY | 2024-08-03 15:34 | XMS_ITS | Clinical Summary ---
Author Organization [facility] Address [address] [place] [address] Phone Care Team Providers Care Real Estate Transaction Coordinator Name Role Phone Vicente Gupta MD Primary [...] to complete this topic Insurance MEDICAID AETNA [facility] Care Teams Real Estate Transaction Coordinator Relationship Specialty Start Date End Date Vicente Gupta MD [address] [address] PCP - General Family Medicine 12/11/22
--- OUTSIDE RECORDS SUMMARY | 2024-08-03 15:34 | XMS_ITS | Clinical Summary ---
Author Organization [facility] Address [address] [place] [phone] Care Team Providers Care Cardiopulmonary Technologist Name Role Phone Jacki Doyle NP Primary Care Provider [phone] Allergies No known active allergies Medications Zoloft [...] Description 07/17/2024 3:45 PM CDT Office Visit [facility] Medical Group [facility] Care at [address] [address] Belinda Rosales PA Nasopharyngitis (Primary Dx); Bilateral impacted cerumen from Last 3 Months Immunizations Immunization Administration [...] ANTIGEN Routine 07/17/2024 4:10 PM CDT Nasopharyngitis [place] REMOVAL IMPACTED CERUMEN INSTRUMENTATION UNILAT Routine 07/17/2024 3:45 PM CDT Bilateral impacted cerumen from Last 3 Months Results * POC Influenza A/B, COVID-19 antigen (07/17/2024 4:10 PM CDT) Influenza A Ag, POC Negative Negative [facility] Influenza B Ag, POC Negative Negative [facility] COVID-19 Ag POC Presumptive Negative Presumptive Negative, Invalid [facility] Nasopharyngeal 07/17/2024 4: 10 PM CDT Belinda SPARROW POINT OF CARE TEST ORDER LIZY Final Result Performing Organization Address City/State/[facility] Co de Phone Number [facility] [address] [place] [address] * POCT rapid strep A (07/17/2024 4:10 PM CDT) Pathologist [facility] Rapid Strep A, POC Negative Negative Swab 07/17/2024 4:10 PM CDT Belinda SPARROW POINT OF CARE TEST ORDER LIZY Final Result * [place] REMOVAL IMPACTED CERUMEN INSTRUMENTATION UNILAT (07/17/2024 3:45 [...] the procedure well with no immediate complications us Belinda SPARROW IN CLINIC/BEDSIDE ORDERA BLES Final Result from Last 3 Months Insurance [employer] [place] [facility] [place] [address] [facility] CHOICE PLUS Care Teams Cardiopulmonary Technologist Relationship Specialty Start Date End Date Jacki Doyle NP PCP - General Family Medicine 09/08/23
--- OUTSIDE RECORDS SUMMARY | 2024-08-03 15:34 | XMS_ITS | Referral Summary ---
Author Organization [facility] Address [address] [place] [phone] Care Team Providers Care Marketing Finance Specialist Name Role Phone Jacki Doyle NP Primary Care Provider [phone] Encounters Date Type Department Care Team Description 07/17/2024 3:45 PM CDT Office Visit [facility] Medical Group [facility] Care at [address] [address] Belinda Rosales PA Nasopharyngitis (Primary Dx); Bilateral impacted cerumen from Last 3 Months Allergies No known [...] ANTIGEN Routine 07/17/2024 4:10 PM CDT Nasopharyngitis [place] REMOVAL IMPACTED CERUMEN INSTRUMENTATION UNILAT Routine 07/17/2024 3:45 PM CDT Bilateral impacted cerumen from Last 3 Months Results * POC Influenza A/B, COVID-19 antigen (07/17/2024 4:10 PM CDT) Influenza A Ag, POC Negative Negative [facility] ED[facility] Influenza B Ag, POC Negative Negative [facility] EDW COVID-19 Ag POC Presumptive Negative Presumptive Negative, Invalid [facility] EDW Nasopharyngeal 07/17/2024 4: 10 PM CDT Belinda SPARROW POINT OF CARE TEST ORDER LIZY Final Result Performing Organization Address City/State/[facility] Co de Phone Number [facility] EDW [address] * POCT rapid strep A (07/17/2024 4:10 PM CDT) Rapid Strep A, POC Negative Negative Swab 07/17/2024 4:10 PM CDT Belinda SPARROW POINT OF CARE TEST ORDER LIZY Final Result * [place] REMOVAL IMPACTED CERUMEN INSTRUMENTATION UNILAT (07/17/2024 3:45 [...] Result from Last 3 Months Insurance AETNA [facility] CHOICE PLUS CHOICE PLUS Care Teams Marketing Finance Specialist Relationship Specialty Start Date End Date Jacki Doyle NP PCP - General Family Medicine 09/08/23
== END 2024-08-03 15:31 | disposition home or self-care (01) ==
LOC: CHSLAB 15:30
PROVIDERS: PCP Nurse Practitioner Obstetrics & Gynecology; Visit Provider Nurse Practitioner Obstetrics & Gynecology
DX: O09.299 Supervision of pregnancy with other poor reproductive or obstetric history, unspecified trimester (principal)
CPT/HCPCS: 36415; 84702

== ENCOUNTER 2024-08-14 14:13 | Outpatient (CLI) | payer OTHER, SELFPAY ==
--- NOTE | ~2024-08-14 | US_ITS ---
EXAMINATION: US OB <=14 wk fetus w TV DATE: 08/14/2024 14:49 INDICATION: First trimester with inconclusive viability TECHNIQUE: Real-time pelvic ultrasound utilizing both a transvaginal and transabdominal probe was pe rformed. The interpreting radiologist was not present for the study. COMPARISON: None. FINDINGS: The uterus measures 9.6 x 6.0 x 4.4 cm. The endometrial complex measures 1.7 cm thickness.There are couple small anechoic fluid collections within the endometrial complex at the uterine fundus without definitive yolk sac or pole.1.2 cm hypoechoic fibroid in the anterior uterine body. The right o vary measures 2.5 x 2.2 x 2.0 cm. The left ovary measures 2.6 x 2.3 x 1.8 cm. There is a trace amount of anechoic free fluid posterior to the uterus. free fluid in the pelvis. IMPRESSION: 1. Thickened endometrial complex with a few small fluid collections at the fundus without evident yol k sac or pole and these remain equivocal for gestational sacs, pseudosac or blood within the en dometrial canal. Differential remains early, failed or ectopic . 2. 1.2 cm fibroid in the anterior uterine body. Reviewed, dictated and finalized at location B. IMPRESSION: 1. Thickened endometrial complex with a few small fluid collections at the fund us without evident yolk sac or pole and these remain equivocal for gestat ional sacs, pseudosac or blood within the endometrial canal. Differential remai ns early, failed or ectopic . 2. 1.2 cm fibroid in the anterior uterine body.
--- OUTSIDE RECORDS SUMMARY | 2024-08-14 15:57 | XMS_ITS | Clinical Summary ---
Author Organization [facility] Address [address] [place] [address] Phone Care Team Providers Care Heel Seat Laster Name Role Phone Unavailable Primary Care Provider [...] patient's age to complete this topic Insurance [facility] [id number]
--- OUTSIDE RECORDS SUMMARY | 2024-08-14 15:57 | XMS_ITS | Clinical Summary ---
Author Organization [facility] Address [address] [place] [address] Phone Care Team Providers Care Timing Machine Operator Name Role Phone Vicente Gupta MD Primary [...] to complete this topic Insurance MEDICAID AETNA [facility] Care Teams Timing Machine Operator Relationship Specialty Start Date End Date Vicente Gupta MD [address] [address] PCP - General Family Medicine 12/11/22
--- OUTSIDE RECORDS SUMMARY | 2024-08-14 15:57 | XMS_ITS | Clinical Summary ---
Author Organization [facility] Address [address] [place] [phone] Care Team Providers Care Poultry Inseminator Name Role Phone Jacki Doyle NP Primary Care Provider [phone] Allergies No known active allergies Medications Zoloft [...] Description 07/17/2024 3:45 PM CDT Office Visit [facility] Care at [address] [address] Belinda Rosales PA Nasopharyngitis (Primary [...] 2-dose series) 2009 Hepatitis B Screening 2014 Depression Screening 09/07/2024 09/08/2023 Regular Well Visit/Exam 18-64 09/07/2024 09/08/2023 Influenza Vaccine (Season Ended) 2025 DTaP/Tdap/Td Vaccine (2 - Td or Tdap) [...] ANTIGEN Routine 07/17/2024 4:10 PM CDT Nasopharyngitis [place] REMOVAL IMPACTED CERUMEN INSTRUMENTATION UNILAT Routine 07/17/2024 3:45 PM CDT Bilateral impacted cerumen from Last 3 Months Results * POC Influenza A/B, COVID-19 antigen (07/17/2024 4:10 PM CDT) Influenza A Ag, POC Negative Negative [facility] Influenza B Ag, POC Negative Negative [facility] ED[facility] COVID-19 Ag POC Presumptive Negative Presumptive Negative, Invalid [facility] EDW Nasopharyngeal 07/17/2024 4: 10 PM CDT Belinda SPARROW POINT OF CARE TEST ORDER LIZY Final Result Performing Organization Address City/State/[facility] Co de Phone Number [facility] EDW [address] [place] [address] * POCT rapid strep A (07/17/2024 4:10 PM CDT) Pathologist [facility] Rapid Strep A, POC Negative Negative Swab 07/17/2024 4:10 PM CDT Belinda SPARROW POINT OF CARE TEST ORDER LIZY Final Result * [place] REMOVAL IMPACTED CERUMEN INSTRUMENTATION UNILAT (07/17/2024 3:45 [...] 3 Months Insurance [employer] [facility] [place] [place] [address] [facility] CHOICE PLUS Care Teams Poultry Inseminator Relationship Specialty Start Date End Date Jacki Doyle NP PCP - General Family Medicine 09/08/23
--- OUTSIDE RECORDS SUMMARY | 2024-08-14 15:57 | XMS_ITS | Referral Summary ---
Author Organization [facility] Address [address] [place] [phone] Care Team Providers Care Boardinghouse Keeper Name Role Phone Jacki Doyle NP Primary Care Provider [phone] Encounters Date Type Department Care Team Description 07/17/2024 3:45 PM CDT Office Visit [facility] Medical Group Convenient Care at [address] [address] Belinda Rosales PA Nasopharyngitis (Primary [...] ANTIGEN Routine 07/17/2024 4:10 PM CDT Nasopharyngitis [place] REMOVAL IMPACTED CERUMEN INSTRUMENTATION UNILAT Routine 07/17/2024 3:45 PM CDT Bilateral impacted cerumen from Last 3 Months Results * POC Influenza A/B, COVID-19 antigen (07/17/2024 4:10 PM CDT) Influenza A Ag, POC Negative Negative [facility] Influenza B Ag, POC Negative Negative [facility] EDW COVID-19 Ag POC Presumptive Negative Presumptive Negative, Invalid [facility] EDW Nasopharyngeal 07/17/2024 4: 10 PM CDT Belinda SPARROW POINT OF CARE TEST ORDER LIZY Final Result Performing Organization Address City/State/[facility] Co de Phone Number [facility] EDW [address] * POCT rapid strep A (07/17/2024 4:10 PM CDT) Rapid Strep A, POC Negative Negative Swab 07/17/2024 4:10 PM CDT Belinda SPARROW POINT OF CARE TEST ORDER LIZY Final Result * [place] REMOVAL IMPACTED CERUMEN INSTRUMENTATION UNILAT (07/17/2024 3:45 [...] Result from Last 3 Months Insurance AETNA [facility] CHOICE PLUS [facility] HMO/PPO Address: [address] [address] [place] [address] CHOICE PLUS [facility] HMO/PPO Address: [address] [address] [place] [address] Care Teams Boardinghouse Keeper Relationship Specialty Start Date End Date Jacki Doyle NP PCP - General Family Medicine 09/08/23
== END 2024-08-14 14:14 | disposition home or self-care (01) ==
PROVIDERS: Nurse Practitioner Family; Visit Provider Nurse Practitioner Obstetrics & Gynecology
DX: O36.80X0 Pregnancy with inconclusive fetal viability, not applicable or unspecified (principal); D25.9 Leiomyoma of uterus, unspecified
CPT/HCPCS: 36415; 76801; 76817; 84702

== ENCOUNTER 2024-08-21 08:02 | Outpatient (CLI) | payer OTHER, SELFPAY ==
--- OUTSIDE RECORDS SUMMARY | 2024-08-21 08:10 | XMS_ITS | Clinical Summary ---
Author Organization [facility] Address [address] [place] [phone] Care Team Providers Care Lining Sewer Name Role Phone Jacki Doyle NP Primary Care Provider [phone] Allergies No known active allergies Medications Zoloft [...] Description 07/17/2024 3:45 PM CDT Office Visit [facility] Medical Group [facility] Care at [address] [address] Belinda Rosales PA Nasopharyngitis (Primary [...] ANTIGEN Routine 07/17/2024 4:10 PM CDT Nasopharyngitis [place] REMOVAL IMPACTED CERUMEN INSTRUMENTATION UNILAT Routine 07/17/2024 3:45 PM CDT Bilateral impacted cerumen from Last 3 Months Results * POC Influenza A/B, COVID-19 antigen (07/17/2024 4:10 PM CDT) Influenza A Ag, POC Negative Negative [facility] Influenza B Ag, POC Negative Negative [facility] COVID-19 Ag POC Presumptive Negative Presumptive Negative, Invalid [facility] EDW Nasopharyngeal 07/17/2024 4: 10 PM CDT Belinda SPARROW POINT OF CARE TEST ORDER LIZY Final Result Performing Organization Address City/State/[facility] Co de Phone Number [facility] EDW [address] [place] [address] * POCT rapid strep A (07/17/2024 4:10 PM CDT) Pathologist [facility] Rapid Strep A, POC Negative Negative Swab 07/17/2024 4:10 PM CDT Belinda SPARROW POINT OF CARE TEST ORDER LIZY Final Result * [place] REMOVAL IMPACTED CERUMEN INSTRUMENTATION UNILAT (07/17/2024 3:45 [...] 3 Months Insurance [employer] [facility] CHOICE PLUS [facility] H[facility]/PPO Address: [address] [address] [place] [address] [place] [address] [facility] CHOICE PLUS [facility] H[facility]PPO Address: [facility] [address] [place] [address] Care Teams Lining Sewer Relationship Specialty Start Date End Date Jacki Doyle NP PCP - General Family Medicine 09/08/23
--- OUTSIDE RECORDS SUMMARY | 2024-08-21 08:10 | XMS_ITS | Referral Summary ---
Author Organization [facility] Address [address] [place] [phone] Care Team Providers Care Management Accounts Manager Name Role Phone Jacki Doyle NP Primary Care Provider [phone] Encounters Date Type Department Care Team Description 07/17/2024 3:45 PM CDT Office Visit [facility] Medical Group Convenient Care at [address] [address] Belinda Rosales PA Nasopharyngitis (Primary [...] CDT) Influenza A Ag, POC Negative Negative [facility] EDW Influenza B Ag, POC Negative Negative [facility] EDW COVID-19 Ag POC Presumptive Negative Presumptive Negative, Invalid [facility] EDW Nasopharyngeal 07/17/2024 4: 10 PM CDT Belinda SPARROW POINT OF CARE TEST ORDER LIZY Final Result Performing Organization Address City/State/[facility] Co de Phone Number [facility] EDW [address] * POCT rapid strep A (07/17/2024 [...] Result from Last 3 Months Insurance AETNA [facility] CHOICE PLUS CHOICE PLUS Care Teams Management Accounts Manager Relationship Specialty Start Date End Date Jacki Doyle NP PCP - General Family Medicine 09/08/23
--- OUTSIDE RECORDS SUMMARY | 2024-08-21 08:10 | XMS_ITS | Clinical Summary ---
Author Organization [facility] Address [address] [place] [phone] Phone Care Team Providers Care Inventory Control/Shipping Receiving Name Role Phone Unavailable Primary Care Provider [...] patient's age to complete this topic Insurance [facility] [id number]
== END 2024-08-21 08:03 | disposition home or self-care (01) ==
LOC: CHSLAB 08:03
PROVIDERS: PCP Nurse Practitioner Family; Visit Provider Nurse Practitioner Obstetrics & Gynecology
DX: O36.80X0 Pregnancy with inconclusive fetal viability, not applicable or unspecified (principal)
CPT/HCPCS: 36415; 84702

== ENCOUNTER 2024-09-04 16:23 | Outpatient (CLI) | payer OTHER, SELFPAY ==
[2024-09-04 17:30] LABS: Beta HCG Quantitative < 1.00 mIU/mL (0-6)
--- OUTSIDE RECORDS SUMMARY | 2024-09-04 17:33 | XMS_ITS | Referral Summary ---
Author Organization [facility] Address [address] [place] [phone] Care Team Providers Care Mechanical Equipment Test Engineer Name Role Phone Jacki Doyle NP Primary Care Provider [phone] Encounters Date Type Department Care Team Description 07/17/2024 3:45 PM CDT Office Visit [facility] Medical Group Convenient Care at [address] [address] Belinda Rosales PA Nasopharyngitis (Primary [...] ANTIGEN Routine 07/17/2024 4:10 PM CDT Nasopharyngitis [place] REMOVAL IMPACTED CERUMEN INSTRUMENTATION UNILAT Routine 07/17/2024 3:45 PM CDT Bilateral impacted cerumen from Last 3 Months Results * POC Influenza A/B, COVID-19 antigen (07/17/2024 4:10 PM CDT) Influenza A Ag, POC Negative Negative [facility] ED[facility] Influenza B Ag, POC Negative Negative [facility] EDW COVID-19 Ag POC Presumptive Negative Presumptive Negative, Invalid [facility] EDW Nasopharyngeal 07/17/2024 4: 10 PM CDT Belinda SPARROW POINT OF CARE TEST ORDER LIZY Final Result Performing Organization Address City/State/[facility] Co de Phone Number [facility] EDW [address] * POCT rapid strep A (07/17/2024 4:10 PM CDT) Rapid Strep A, POC Negative Negative Swab 07/17/2024 4:10 PM CDT Belinda SPARROW POINT OF CARE TEST ORDER LIZY Final Result * [place] REMOVAL IMPACTED CERUMEN INSTRUMENTATION UNILAT (07/17/2024 3:45 [...] Result from Last 3 Months Insurance AETNA [facility] CHOICE PLUS Member Subscriber Plan / Payer (Ef fective 2023-Present) Name:Lo Rodas Relation to Subscriber:Self Name:Lo Rodas Payer ID:[id number] ([facility]) Type:[facility] HMO/PPO Address: [address] [address] [place] [address] CHOICE PLUS Member Subscriber Plan / Payer (Ef fective 2023-Present) Name:Lo Rodas Relation to Subscriber:Self Name:Lo Rodas Payer ID:[id number] ([facility]) Type:[facility] HMO/PPO Address: [address] [address] [place] [address] Care Teams Mechanical Equipment Test Engineer Relationship Specialty Start Date End Date Jacki Doyle NP PCP - General Family Medicine 09/08/23
--- OUTSIDE RECORDS SUMMARY | 2024-09-04 17:33 | XMS_ITS | Clinical Summary ---
Author Organization [facility] Address [address] [place] [phone] Care Team Providers Care National Account Executive Name Role Phone Jacki Doyle NP Primary Care Provider [phone] Allergies No known active allergies Medications Zoloft [...] Description 07/17/2024 3:45 PM CDT Office Visit [facility] Medical Group [facility] Care at [address] [address] Belinda Rosales PA Nasopharyngitis (Primary [...] ANTIGEN Routine 07/17/2024 4:10 PM CDT Nasopharyngitis [place] REMOVAL IMPACTED CERUMEN INSTRUMENTATION UNILAT Routine 07/17/2024 3:45 PM CDT Bilateral impacted cerumen from Last 3 Months Results * POC Influenza A/B, COVID-19 antigen (07/17/2024 4:10 PM CDT) Influenza A Ag, POC Negative Negative [facility] Influenza B Ag, POC Negative Negative [facility] EDW COVID-19 Ag POC Presumptive Negative Presumptive Negative, Invalid [facility] EDW Nasopharyngeal 07/17/2024 4: 10 PM CDT Belinda SPARROW POINT OF CARE TEST ORDER LIZY Final Result Performing Organization Address City/State/[facility] Co de Phone Number [facility] EDW [address] [place] [address] * POCT rapid strep A (07/17/2024 4:10 PM CDT) Pathologist [facility] Rapid Strep A, POC Negative Negative Swab 07/17/2024 4:10 PM CDT Belinda SPARROW POINT OF CARE TEST ORDER LIZY Final Result * [place] REMOVAL IMPACTED CERUMEN INSTRUMENTATION UNILAT (07/17/2024 3:45 [...] 3 Months Insurance [employer] [facility] CHOICE PLUS [facility] HMO/PPO Address: [address] [address] [place] [address] [place] [address] [facility] CHOICE PLUS [facility] HMO/PPO Address: [facility] [address] [place] [address] Care Teams National Account Executive Relationship Specialty Start Date End Date Jacki Doyle NP PCP - General Family Medicine 09/08/23
--- OUTSIDE RECORDS SUMMARY | 2024-09-04 17:34 | XMS_ITS | Clinical Summary ---
Author Organization [facility] Address [address] [place] [phone] Phone Care Team Providers Care Clinical Dermatologist Name Role Phone Unavailable Primary Care Provider Unavailabl e Social History Tobacco Use Types Packs/Day Years [...] patient's age to complete this topic Insurance [employer] [id number]
== END 2024-09-04 16:24 | disposition home or self-care (01) ==
LOC: CHSLAB 16:24
PROVIDERS: PCP Nurse Practitioner Family; Visit Provider Nurse Practitioner Obstetrics & Gynecology
DX: O03.9 Complete or unspecified spontaneous abortion without complication (principal)
CPT/HCPCS: 36415; 84702

== ENCOUNTER 2024-10-03 10:53 | Outpatient (CLI) | payer OTHER, SELFPAY ==
--- OUTSIDE RECORDS SUMMARY | 2024-10-03 11:00 | XMS_ITS | Clinical Summary ---
Author Organization [facility] Address [address] [place] [address] Phone Care Team Providers Care Engraver Jewelry Name Role Phone Vicente Gupta MD Primary [...] to complete this topic Insurance MEDICAID AETNA [facility] Care Teams Engraver Jewelry Relationship Specialty Start Date End Date Vicente Gupta MD [address] [address] PCP - General Family Medicine 12/11/22
--- OUTSIDE RECORDS SUMMARY | 2024-10-03 11:00 | XMS_ITS | Referral Summary ---
Author Organization [facility] Address [address] [place] [phone] Care Team Providers Care Relish Blender Name Role Phone Jacki Doyle NP Primary Care Provider [phone] Encounters Date Type Department Care Team Description 07/17/2024 3:45 PM CDT Office Visit [facility] Medical Group Convenient Care at [address] [address] Belinda Rosales PA Nasopharyngitis (Primary [...] Sex Female 4:11 PM CDT Gender Identity Female 09/19/2024 7:25 AM CDT Sexual Orientation Not on file Last Filed [...] 3:46 PM CDT Height 162.6 cm (5' 4) 07/17/2024 3:46 PM CDT Body Mass Index 38.62 07/17/2024 3:46 PM CDT Plan of Treatment Not on file Procedures Procedure Name Priority Date/Time Associated Diagnosis Comments POCT RAPID STREP Routine 07/17/2024 4:10 PM CDT Nasopharyngitis POC INFLUENZA A/B, COVID-19 ANTIGEN Routine 07/17/2024 4:10 PM CDT Nasopharyngitis [place] REMOVAL IMPACTED CERUMEN INSTRUMENTATION UNILAT Routine 07/17/2024 3:45 PM CDT Bilateral impacted cerumen from Last 3 Months Results * POC Influenza A/B, COVID-19 antigen (07/17/2024 4:10 PM CDT) Influenza A Ag, POC Negative Negative [facility] Influenza B Ag, POC Negative Negative [facility] EDW COVID-19 Ag POC Presumptive Negative Presumptive Negative, Invalid [facility] EDW Nasopharyngeal 07/17/2024 4: 10 PM CDT Belinda SPARROW POINT OF CARE TEST ORDER LIZY Final Result Performing Organization Address City/State/[facility] Co de Phone Number [facility] EDW [address] [place] [address], [facility] * POCT rapid strep A (07/17/2024 4:10 PM CDT) Rapid Strep A, POC Negative Negative Swab 07/17/2024 4:10 PM CDT Belinda SPARROW POINT OF CARE TEST ORDER LIZY Final Result * [place] REMOVAL IMPACTED CERUMEN INSTRUMENTATION UNILAT (07/17/2024 3:45 [...] Result from Last 3 Months Insurance AETNA [facility] CHOICE PLUS CHOICE PLUS [place] [id number] Care Teams Relish Blender Relationship Specialty Start Date End Date Jacik Doyle NP PCP - General Family Medicine 09/08/23
--- OUTSIDE RECORDS SUMMARY | 2024-10-03 11:00 | XMS_ITS | Clinical Summary ---
Author Organization [facility] Address [address] [place] [phone] Care Team Providers Care Potato Peeler Name Role Phone Jacki Doyle NP Primary Care Provider [phone] Allergies No known active allergies Medications Zoloft [...] Description 07/17/2024 3:45 PM CDT Office Visit [facility] Medical Group [facility] Care at [address] [phone] Belinda Rosales PA Nasopharyngitis (Primary Dx); Bilateral [...] AM CDT Sexual Orientation Not on file Obstetrics History [...] ANTIGEN Routine 07/17/2024 4:10 PM CDT Nasopharyngitis [place] REMOVAL IMPACTED CERUMEN INSTRUMENTATION UNILAT Routine 07/17/2024 3:45 PM CDT Bilateral impacted cerumen from Last 3 Months Results * POC Influenza A/B, COVID-19 antigen (07/17/2024 4:10 PM CDT) Influenza A Ag, POC Negative Negative [facility] Influenza B Ag, POC Negative Negative [facility] EDW COVID-19 Ag POC Presumptive Negative Presumptive Negative, Invalid [facility] EDW Nasopharyngeal 07/17/2024 4: 10 PM CDT Belinda SPARROW POINT OF CARE TEST ORDER LIZY Final Result Performing Organization Address City/State/[facility] Co de Phone Number [facility] EDW [address] [place] [address] * POCT rapid strep A (07/17/2024 4:10 PM CDT) Pathologist [facility] Rapid Strep A, POC Negative Negative Swab 07/17/2024 4:10 PM CDT Belinda SPARROW POINT OF CARE TEST ORDER LIZY Final Result * [place] REMOVAL IMPACTED CERUMEN INSTRUMENTATION UNILAT (07/17/2024 3:45 [...] 3 Months Insurance [employer] [facility] CHOICE PLUS [facility] CHOICE PLUS Care Teams Potato Peeler Relationship Specialty Start Date End Date Jacki Doyle NP PCP - General Family Medicine 09/08/23
--- OUTSIDE RECORDS SUMMARY | 2024-10-03 11:00 | XMS_ITS | Clinical Summary ---
Author Organization [facility] Address [address] [place] [phone] Phone Care Team Providers Care Fire Dispatcher Name Role Phone Unavailable Primary Care Provider [...] patient's age to complete this topic Insurance [employer] [id number]
[2024-10-04 05:33] LABS: Progesterone. 15.6 ng/mL
== END 2024-10-03 10:54 | disposition home or self-care (01) ==
LOC: CHSLAB 10:55
PROVIDERS: PCP Nurse Practitioner Family; Visit Provider Nurse Practitioner Obstetrics & Gynecology
DX: Z32.01 Encounter for pregnancy test, result positive (principal)
CPT/HCPCS: 36415; 84144; 84702

== ENCOUNTER 2024-10-05 11:35 | Outpatient (CLI) | payer OTHER, SELFPAY ==
--- OUTSIDE RECORDS SUMMARY | 2024-10-05 11:37 | XMS_ITS | Referral Summary ---
Author Organization [facility] Address [address] [place] [phone] Care Team Providers Care Estate Tax Examiner Name Role Phone Jacki Doyle NP Primary Care Provider [phone] Encounters Date Type Department Care Team Description 07/17/2024 3:45 PM CDT Office Visit [facility] Care at [address] [phone] Belinda Rosales PA Nasopharyngitis (Primary [...] ANTIGEN Routine 07/17/2024 4:10 PM CDT Nasopharyngitis [place] REMOVAL IMPACTED CERUMEN INSTRUMENTATION UNILAT Routine 07/17/2024 3:45 PM CDT Bilateral impacted cerumen from Last 3 Months Results * POC Influenza A/B, COVID-19 antigen (07/17/2024 4:10 PM CDT) Influenza A Ag, POC Negative Negative [facility] Influenza B Ag, POC Negative Negative [facility] ED[facility] COVID-19 Ag POC Presumptive Negative Presumptive Negative, Invalid [facility] ED[facility] Nasopharyngeal 07/17/2024 4: 10 PM CDT Belinda SPARROW POINT OF CARE TEST ORDER LIZY Final Result Performing Organization Address City/State/[facility] Co de Phone Number [facility] EDW [address] [place] [address], [facility] * POCT rapid strep A (07/17/2024 4:10 PM CDT) Rapid Strep A, POC Negative Negative Swab 07/17/2024 4:10 PM CDT Belinda SPARROW POINT OF CARE TEST ORDER LIZY Final Result * [place] REMOVAL IMPACTED CERUMEN INSTRUMENTATION UNILAT (07/17/2024 3:45 [...] Result from Last 3 Months Insurance [facility]NA [facility] CHOICE PLUS CHOICE PLUS [place] [id number] Care Teams Estate Tax Examiner Relationship Specialty Start Date End Date Jacki Doyle NP PCP - General Family Medicine 09/08/23
--- OUTSIDE RECORDS SUMMARY | 2024-10-05 11:37 | XMS_ITS | Clinical Summary ---
Author Organization [facility] Address [address] [place] [phone] Phone Care Team Providers Care Alterations Expert Name Role Phone Unavailable Primary Care Provider [...] patient's age to complete this topic Insurance [employer] ([id number]) [id number]
--- OUTSIDE RECORDS SUMMARY | 2024-10-05 11:37 | XMS_ITS | Clinical Summary ---
Author Organization [facility] Address [address] [place] [address] Phone Care Team Providers Care Cone Classifier Tender Name Role Phone Vicente Gupta MD Primary [...] to complete this topic Insurance MEDICAID AETNA [facility] Care Teams Cone Classifier Tender Relationship Specialty Start Date End Date Vicente Gupta MD [address] [address] PCP - General Family Medicine 12/11/22
--- OUTSIDE RECORDS SUMMARY | 2024-10-05 11:37 | XMS_ITS | Clinical Summary ---
Author Organization [facility] Address [address] [place] [phone] Care Team Providers Care Coil Winder Hand Name Role Phone Jacki Doyle NP Primary Care Provider [phone] Allergies No known active allergies Medications Zoloft [...] Office Visit [facility] Care at [address] [phone] Belinda Rosales PA Nasopharyngitis (Primary Dx); Bilateral [...] ANTIGEN Routine 07/17/2024 4:10 PM CDT Nasopharyngitis [place] REMOVAL IMPACTED CERUMEN INSTRUMENTATION UNILAT Routine 07/17/2024 3:45 PM CDT Bilateral impacted cerumen from Last 3 Months Results * POC Influenza A/B, COVID-19 antigen (07/17/2024 4:10 PM CDT) Influenza A Ag, POC Negative Negative [facility] Influenza B Ag, POC Negative Negative [facility] COVID-19 Ag POC Presumptive Negative Presumptive Negative, Invalid [facility] Nasopharyngeal 07/17/2024 4: 10 PM CDT Belinda SPARROW POINT OF CARE TEST ORDER LIZY Final Result Performing Organization Address City/State/[facility] Co de Phone Number [facility] CC EDW [address] [place] [address] * POCT rapid strep A (07/17/2024 4:10 PM CDT) Pathologist [facility] Rapid Strep A, POC Negative Negative Swab 07/17/2024 4:10 PM CDT Belinda SPARROW POINT OF CARE TEST ORDER LIZY Final Result * MS REMOVAL IMPACTED CERUMEN INSTRUMENTATION UNILAT (07/17/2024 3:45 [...] 3 Months Insurance AETNA [facility] [place] [facility] CHOICE PLUS [facility] CHOICE PLUS Care Teams Coil Winder Hand Relationship Specialty Start Date End Date Jacki Doyle NP PCP - General Family Medicine 09/08/23
== END 2024-10-05 11:36 | disposition home or self-care (01) ==
LOC: CHSLAB 11:35
PROVIDERS: PCP Nurse Practitioner Family; Visit Provider Nurse Practitioner Obstetrics & Gynecology
DX: Z32.01 Encounter for pregnancy test, result positive (principal)
CPT/HCPCS: 36415; 84702

== ENCOUNTER 2024-10-20 10:37 | Outpatient (CLI) | payer OTHER, SELFPAY ==
--- NOTE | ~2024-10-20 | US_ITS ---
EXAMINATION: US OB <=14 wk fetus w TV DATE: 10/20/2024 11:48 INDICATION: Uncertain dates. TECHNIQUE: Real-time transabdominal and transvaginal obstetric ultrasound. FINDINGS: No prior studies for comparison. The uterus measures 12.3 x 6.4 x 8 cm. There is an intrauterine gestational sac, with pole iden tified. The crown rump length measures 1.6 cm, which correlates with a estimated gestational age of 8 weeks 0 days. heart tones are identified measuring 167 BPM. There is a small subchorionic h emorrhage measuring 12 x 10 x 10 mm. Ovaries within normal limits. IMPRESSION: 1. SL IUP with an EGA of 8 weeks, 0 days (EDC by current ultrasound of 06/01/2025). 2: Small subchorionic hemorrhage measuring 12 x 10 x 10 mm. Reviewed, dictated and finalized at location B. IMPRESSION: 1. SL IUP with an EGA of 8 weeks, 0 days (EDC by current ultrasound of ). 2: Small subchorionic hemorrhage measuring 12 x 10 x 10 mm.
== END 2024-10-20 10:38 | disposition home or self-care (01) ==
LOC: MICIMG 10:37
PROVIDERS: PCP Nurse Practitioner Family; Visit Provider Nurse Practitioner Family
DX: O36.80X0 Pregnancy with inconclusive fetal viability, not applicable or unspecified (principal); Z3A.08 8 weeks gestation of pregnancy
CPT/HCPCS: 76801; 76817

== ENCOUNTER 2025-03-11 16:00 | Outpatient (CLI) | payer OTHER, SELFPAY ==
--- OUTSIDE RECORDS SUMMARY | 2025-03-11 16:06 | XMS_ITS | Clinical Summary ---
Author Organization [facility] Address [address] [place] [address] Care Team Providers Care Paper Coating Supervisor Name Role Phone Unavailable Primary Care Provider Unavailabl e Source Comments [facility],non-owned Affiliates and Associated Physician Practices is amultiple site organization consisting of ambulatory clinics and hospital sitesin [place], [place], [place] and [place]. This disclosure is being madepursuant to the Care Everywhere program and may not contain all information available regarding this patient. Last updated 18.[facility] Allergies No known active allergies Encounters Date Type Department Care Team Description 02/22/2025 1:00 PM CDT - 02/22/2025 11:59 PM CDT Hospital Encounter [facility] [address] [place] [phone] Fabiana Gallagher MD Discharge Disposition: Home or Self Care 01/25/2025 12:47 PM CDT - 01/25/2025 11:59 PM CDT Hospital Encounter [facility] [address] [place] [phone] Saturnino Ruby MD Discharge Disposition: Home or Self Care from Last 3 Months Social History Tobacco Use Types Packs/Day Years Used Date Smoking Tobacco: Never Assessed Estimated Date of Delivery Comme nts Yes 06/01/2025 Based on Ultraso und Sex and Gender Information Value Date Recorded Sex Assigned at Not on file Legal Sex Female 8:31 AM CDT Gender Identity Not on file Sexual Orientation Not on file Plan of Treatment Health Maintenance Due Date Last Done Comments HIV SCREENING 2011 HEPATITIS C SCREENING 05/24/2014 DTAP/TDAP/TD VACCINES (1 - Tdap) 2015 HEPATITIS B VACCINE (1 of 3 - 19+ 3-dose series) 2015 PAP SMEAR 2017 HPV VACCINE (1 - 3-dose SCDM series) 2023 DEPRESSION SCREENING 05/09/2024 INFLUENZA VACCINE (#1) 2025 02/09/2024 OB-ONE HOUR GLUCOSE 02/23/2025 OB-TDAP CURRENT 03/02/2025 03/07/2023 OB-RHOGAM INJECTION 03/09/2025 Respiratory Syncytial Virus (RSV) Vaccine Pt: or over 60 yrs (1 - Risk 1-dose series) 04/06/2025 ZOSTER VACCINE (1 of 2) 2046 COVID-19 VACCINE Completed 02/09/2024, 03/18/2023 HIB VACCINE Aged Out No longer eligi ble based on patient's age to complete this topic MENINGOCOCCAL (Group B) VACCINE SHARED DECISION-MAKING Aged Out No longer eligible based on patient's age to complete this topic MENINGOCOCCAL GROUPS A/C/Y/W VACCINE Aged Out No longer eligible b ased on patient's age to complete this topic PNEUMOCOCCAL VACCINE Aged Out No long er eligible based on patient's age to complete this topic Procedures Procedure Name Priority Date/Time Associated Diagnosis Comments SONOGRAM - COMPLETE Routine 02/22/2025 1 :07 PM CDT 21 weeks gestation of (HCC) Encounter for follow-up ultrasound of anatomy (HCC) SONOGRAM - COMPLETE Routine 01/25/2025 1 :08 PM CDT Encounter for anatomic survey (HCC) 21 weeks gestation of (HCC) from Last 3 Months Results * Sonogram - Complete (02/22/2025 1:07 PM CDT) Only the most recent of2 resultswithin the time period is included. Linked Results Indication ======== Maternal obesity complicating , class 2 (BMI 35.0 - 39.9) anatomy evaluation Uterine fibroids in History ====== OB History 4. Para 1 T1A2 1. live 2022. Gest. age 40 w + 0 d. Weight 3,317 g. Sex of child: male. Details: Vaginal delivery 2. miscarriage (< 20 weeks) 2023 3. miscarriage (< 20 weeks) 2024 Lab Tests Test Date Result NIPT Low risk, Male Maternal Assessment Physical Exam Height 163 cm, 5 ft 4 in. Weight 106 kg, 233 lb. Initial weight 98 kg, 215 lb. BMI 39.99 kg/m . Initial BMI 36.90 kg/m . Weight gain 8 kg, 18 lb Method ====== Transabdominal ultrasound. View: Suboptimal view: limited by position ========= Parra . Number of fetuses: 1 Dating ====== Date Details Gest. age SYLWIA Stated SYLWIA 25 w + 6 d 06/01/2025 U/S 02/22/2025 based upon AC, BPD, Femur, HC 26 w + 6 d 05/25/2025 Assigned dating based on stated SYLWIA, selected on 01/25/2025 25 w + 6 d 06/01/2025 General Evaluation Cardiac activity present. FHR 137 bpm. Presentation: cephalic Placenta: Placental site: posterior Umbilical cord: Cord vessels: 3 vessel cord. Insertion site: normal insertion Amniotic fluid: Amount of AF: normal. MVP 4.4 cm Biometry BPD 66.2 mm 26w 5d 70% Hadlock HC 248.6 mm 27w 0d 66% Hadlock AC 239.2 mm 28w 1d 95% Hadlock Femur 46.2 mm 25w 2d 21% Hadlock Humerus 44.6 mm 26w 3d 64% Cali HC / AC 1.04 Weight Calculation: EFW 1,016 g 85% Hadlock EFW (lb,oz) 2 lb 4 oz EFW by Hadlock (HPP-IH-HP-FL) overall normal range, but the AC is >90% Growth Overview Exam date GA BPD (mm) HC (mm) AC (mm) FL (mm) HL (mm) EFW (g) 01/25/2025 21w 6d 52.2 47% 198.6 46% 188 89% 36.5 31% 36.4 76% 518 80% 02/22/2025 25w 6d 66.2 70% 248.6 66% 239.2 95% 46.2 21% 44.6 64% 1016 85% Anatomy The following structures appear normal: Heart / Thorax 4-chamber view. LVOT view. 3-vessel view. 4-bcmobh-cfgyago view. Aortic arch view. Great vessels. Right lung. Left lung. Abdomen Cord insertion. Stomach. Kidneys. Bladder. The following structures were documented previously: Head / Neck Cranium. Lateral ventricles. Choroid plexus. Midline falx. Cavum septi pellucidi. Cerebellum. Cisterna magna. Thalami. Nuchal fold. Face Lips. Profile. Nose. Nasal bone. Orbits. Heart / Thorax RVOT view. Situs. Bicaval view. Ductal arch view. Diaphragm. Abdomen Bowel. Genitals. Spine Cervical spine. Thoracic spine. Lumbar spine. Sacral spine. Extremities / Skeleton Arms. Hands. Legs. Feet. sex: male. Impression ========= Single, live, intrauterine at 25w6d The size is overall normal range, but the AC is >90% Complete anatomical survey with no major malformations seen within the limitations of ultrasound The amniotic fluid volume is normal Comment ======== ultrasound alone cannot detect all structural, genetic, or functional , placental, or maternal abnormalities Follow-up ======== Ultrasound in 4-6 weeks for growth assessment Begin weekly testing at 36 weeks gestation Coding ====== Diagnoses Z36.3: Encounter for screening for malformations O99.212, E66.812: Obesity complicating , class 2 (BMI 35.0 - 39.9) Procedures 80229: US Preg Uterus Follow Up [facility] PACS Anatomical Region Laterality Modality Other 02/22/2025 1:07 PM CDT Aristides Jacobs MD [facility] ORDERABLES Edited Result - Final from Last 3 Months Insurance [facility]
--- OUTSIDE RECORDS SUMMARY | 2025-03-11 16:06 | XMS_ITS | Clinical Summary ---
Author Organization [facility] Address [address] [place] [phone] Care Team Providers Care Double End Tenoner Operator Name Role Phone Jacki Doyle NP Primary Care Provider [phone] Allergies No known active allergies Medications sertraline (ZOLOFT) 100 mg tablet Take 1 tablet (100 mg total) by mouth daily 10/12/2024 Active Active Problems Problem Noted Date Diagnosed Date Leg skin lesion, left 10/29/2024 Assessment & Plan (10/29/2024 10:07 AM CDT): Preventative health care 09/15/2023 Assessment & Plan (10/29/2024 10:07 AM CDT): Normal exam. Will follow with DRYWALL TAPER HELPER for next year for / labs. Follow up 1 year for recheck. Assessment & Plan (09/15/2023 8:09 AM CDT): [...] Medical History Medical History Date Comments 04/2023 Miscarriage 10/27/2023 Miscarriage within last 12 months 08/16/2024 Family History Medical History Relation Name Comments Diabetes Maternal Grandfather Ovarian cancer Maternal Grandmother Hypertension Mother Diabetes Paternal Grandfather Relation Name Status Comments Father Alive Maternal Grandfather Maternal Grandmother Mother Alive Paternal Grandfather Social History Tobacco Use Types Packs/Day Years Used Date Smoking Tobacco: Never Smokeless Tobacco: Never AUDIT-C Answer Date Recorded Q1: How often do you have a drink containing alcohol? Never 10/29/2024 Q2: How many drinks containi ng alcohol do you have on a typical day when you are drinking? Patient does not drink Q3: How often do you have si x or more drinks on one occasion? Never 10/29/2024 PHQ-2 Answer Date Recorded PHQ-2 Total Score (If total score is 3 or more points, staff should administer the PHQ-9) 0 10/29/2024 Comments Unknown Sex and Gender Information Value Date Recorded Sex Assigned at Not on file Legal Sex Female 4:11 PM CDT Gender Identity Female 09/19/2024 7:25 AM CDT Sexual Orientation Not on file Last Filed Vital Signs Vital Sign Reading Time Taken Comments Blood Pressure 112/66 10/29/2024 9:36 AM CDT Pulse 63 10/29/2024 9:36 AM CDT Temperature 36.7 C (98 F) 10/29/2024 9:36 AM CDT Respiratory Rate 16 10/29/2024 9:36 AM CDT Oxygen Saturation 98% 10/29/2024 9:36 AM CDT Inhaled Oxygen Concentration - - Weight 98 kg (216 lb) 10/29/2024 9:36 AM CDT Height 162.6 cm (5' 4) 10/29/2024 9:36 AM CDT Body Mass Index 37.08 10/29/2024 9:36 AM CDT Plan of Treatment Health Maintenance Due Date Last Done Comments Cervical Cancer Screening 1996 Hepatitis C Screening 1996 Varicella Vaccines (1 of 2 - 13+ 2-dose series) 2009 Hepatitis B Screening 2014 HPV Vaccines (1 - 3-dose SCD M series) 2023 Influenza Vaccine (#1) 2025 Depression Screening 10/29/2025 10/29/2024, 09/08/2023 Regular Well Visit/Exam 18-64 10/29/2025, 09/08/2023 DTaP/Tdap/Td Vaccine (2 - Td or Tdap) 03/07/2033 03/07/2023 Pneumococcal vaccine <65 Aged Out No longer eligible based on patient's age to complete this topic Insurance AETNA [facility] [place] [facility] CHOICE PLUS [facility] CHO[facility] PLUS Care Teams Double End Tenoner Operator Relationship Specialty Start Date End Date Jacki Doyle NP [address] [address] PCP - General Family Medicine 09/08/23
--- OUTSIDE RECORDS SUMMARY | 2025-03-11 16:06 | XMS_ITS | Clinical Summary ---
Author Organization [facility] Address [address] [place] [phone] Phone Care Team Providers Care Shoe Stock Associate Name Role Phone Unavailable Primary Care Provider [...] (1 of 3 - 19+ 3-dose series) 05/10 CERVICAL CANCER SCREENING 2017 HPV/Cotest (21-29) 2017 PAP SMEAR 2017 HPV VACCINES (1 - 3-dose SCDM series) 2023 INFLUENZA VACCINE (#1) [address] [employer] [facility] [id number]
--- OUTSIDE RECORDS SUMMARY | 2025-03-11 16:06 | XMS_ITS | Clinical Summary ---
Author Organization [facility] Address [address] [place] [address] Phone Care Team Providers Care Clinical Project Leader Name Role Phone Vicente Gupta MD Primary [...] of 3 - 19+ 3-dose series) 2015 Human Papillomavirus (HPV) Immunization (1 - 3-dose SCDM series) 2023 Influenza Immunization (#1) 2025 SARS-COV-2 Immunization ( season) 2025 Respiratory Syncytial Virus (RSV) Immunization (Adult) (1 - 1-dose 75+ series) 2071 Meningococcal Immunization (ACWY) Aged Out No longer eligible based on patient's age to complete this topic Pneumococcal Immunization Combined Aged Out No longer eligible based on patient's age to complete this topic Rotavirus Immunization Aged Out No lo nger eligible based on patient's age to complete this topic Insurance MEDICAID AETNA [facility] Care Teams Clinical Project Leader Relationship Specialty Start Date End Date Vicente Gupta MD [address] [facility] [address] [place] [address] PCP - General Family Medicine 12/11/22
[2025-03-11 17:15] LABS: Hematocrit 30.9 % (35.0-49.0); Hemoglobin 10.3 g/dL (12.0-15.0); Mean Corpuscular HGB Conc 33.3 g/dL (32-36); Mean Corpuscular Hemoglobin 30.9 pg (27.0-31.0); Mean Corpuscular Volume 92.8 fL (78.0-102.0); Platelet Count Result 260 K/mm3 (150-420); Red Blood Count 3.33 M/mm3 (4.20-5.40); White Blood Count 14.9 K/mm3 (4.8-10.8)
[2025-03-11 17:26] LABS: Glucose 1 Hour PP 50gm Dose 109 mg/dL
[2025-03-11 17:49] LABS: HIV 1 P24 AG Negative (Negative); HIV 1/2 AB Negative (Negative)
[2025-03-13 08:46] LABS: Syphilis IgG/IgM Antibody Non-Reactive (Nonreactive)
== END 2025-03-11 16:01 | disposition home or self-care (01) ==
LOC: CHSLAB 16:02
PROVIDERS: PCP Nurse Practitioner Family; Visit Provider Obstetrics & Gynecology
DX: Z34.90 Encounter for supervision of normal pregnancy, unspecified, unspecified trimester (principal)
CPT/HCPCS: 36415; 82947; 85027; 86593; 87806